=== PATIENT | male | born 1935 | race Caucasian/White ===

== ENCOUNTER 2018-09-12 00:21 | Inpatient (IN) ==
[2018-09-12] MEDS ORDERED: Heparin 10,000 UNITS/10 ML Vial (for IV use) IV.PUSH STA (00:27)
[2018-09-12] MEDS ORDERED: Morphine Inj 4 MG/ML Vial IV.PUSH ONE (00:30)
[2018-09-12] MEDS ORDERED: Sod Chloride 0.9% Inj 1,000 ML IV.SIG SCH (00:30)
--- NOTE | 2018-09-12 00:38 | ED ---
HPI General Chief Complaint: STEMI Alert Stated Complaint: cardiac complaint Time Seen by Provider: 09/12/18 00:27 Source: patient and EMS Mode of arrival: EMS Limitations: no limitations History of Present Illness HPI narrative: 82-year-old male came to the emergency room brought by EMS as a STEMI alert. Patient says that his pain started all of a sudden at 11 PM. There was slight shortness of breath associated. Patient described the pain 10 out of 10 on his entire chest. No significant radiation of the pain. No aggravating or relieving factors identified. When EMS arrived his blood pressure was more than 200. He was given 2 sublingual nitroglycerin and 325 aspirin with no relief for the pain. Patient says that he has no history of coronary artery disease. He is not a smoker and no history of diabetes. He had a stress test done 1 year ago in this institution which was negative as per him. The twelve-lead EKG with posterior leads showed STEMI in the posterior leads. Related Data Home Medications Medication Instructions Recorded Confirmed ezetimibe 10 mg PO DAILY 09/12/18 09/12/18 losartan-hydrochlorothiazide 1 tab PO DAILY 09/12/18 09/12/18 metoprolol tartrate 100 mg PO BID 09/12/18 09/12/18 Allergies Allergy/AdvReac Type Severity Reaction Status Date / Time No Known Allergies Allergy Blister Uncoded 09/12/18 00:54 Review of Systems ROS: all other systems reviewed are negative PMFSH History History Provided By: Patient and Removable Prosthodontist / EMT Medical History Medical History Hyperlipidemia (Acute) Hypertension (Acute) Surgical History Surgical History H/O shoulder surgery (Acute) History of CEA (carotid endarterectomy) (Acute) Hx of tonsillectomy (Acute) Previous back surgery (Acute) S/p bilateral carpal tunnel release (Acute) Family History Family History Other CAD (coronary artery disease) Colitis Social History Social History Substance History: No History of Abuse Second Hand Smoke Exposure: No Smoking Status: Never smoker How Often Do You Have a Drink Containing Alcohol: 4 or more times a week Recent Travel in [facility] within the Last 8 Weeks: No Recent Out of Country Travel within the Last 8 Weeks: No Exam Narrative Exam Narrative: GENERAL:, Alert, anxious, moderate distress SKIN: Focused skin assessment warm/dry. HEAD: Atraumatic. Normocephalic. EYES: Pupils equal and round. No scleral icterus. No injection or drainage. ENT: No nasal bleeding or discharge. Mucous membranes pink and moist. NECK: Trachea midline. No JVD. CARDIOVASCULAR: Regular rate and rhythm. No murmur appreciated. RESPIRATORY: No accessory muscle use. Fine bibasilar crackles GASTROINTESTINAL: Abdomen soft, non-tender, nondistended. Hepatic and splenic margins not palpable. MUSCULOSKELETAL: No obvious deformities. No clubbing. No cyanosis. No edema. NEUROLOGICAL: Awake and alert. No obvious cranial nerve deficits. Motor grossly within normal limits. Normal speech. PSYCHIATRIC: Appropriate mood and affect; insight and judgment normal. Course Initial Documented Vital Signs Temperature 98.4 F 09/12/18 00:24 Pulse Rate 122 H 09/12/18 00:24 Respiratory Rate 25 H 09/12/18 00:24 Blood Pressure 207/135 H 09/12/18 00:24 Pulse Oximetry 94 L 09/12/18 00:24 Last Documented Vital Signs Temperature 98.6 F 09/14/18 00:00 Pulse Rate 84 09/14/18 01:00 Respiratory Rate 18 09/14/18 00:00 Blood Pressure 105/66 09/14/18 00:00 Pulse Oximetry 98 09/14/18 00:00 Critical Care Time Critical Care Time: Yes Total Critical Care Time: 30 Attestation: Aggregate critical care time was 30 minutes. Time to perform other separately billable procedures was not included in the critical care time. My time did not include minutes spent treating any other patients simultaneously or on activities that did not directly contribute to the patient's treatment. The services I provided to this patient were to treat and/or prevent clinically significant deterioration that could result in: Posterior STEMI, nitroglycerin drip, hypertensive emergency I provided critical care services requiring my management, as noted below: Chart data review, documentation time, medication orders and management, vital sign assessments/reviewing monitor data, ordering and reviewing lab tests, ordering and interpreting/reviewing x-rays and diagnostic studies, care of the patient and discussion of the patient with the admitting physicians. Quality Measure Queries AMI ECG initial impression date: 09/12/18 ECG initial impression time: 00:36 Medical Decision Making MDM Narrative Medical decision making narrative: 12:36 AM a STEMI alert was called. Based on the twelve-lead confirmation for STEMI the [employer] field staff manager was called. He is on his way to the [facility]. I have informed the patient about his condition and the plan. Patient is getting 5000 units of heparin bolus and morphine for pain. His blood pressure is significantly elevated and a nitro drip has been started. Awaiting for the patient to go to the [facility]. Medical Screen Exam Complete: Yes Emergency Medical Condition: Yes Lab Data Result diagrams: 09/13/18 06:07 09/13/18 06:07 Lab Results 09/12/18 09/12/18 09/12/18 Range/Units 00:31 00:31 00:31 WBC 8.7 (4.0-11.0) th/mm3 RBC 4.97 (4.50-5.90) mil/mm3 Hgb 16.4 (13.0-17.0) gm/dL POC Hgb (Calc) (13.0-17.0) g/dL Hct 47.5 (39.0-51.0) % POC Hct (39-51.0) % MCV 95.6 (80.0-100.0) fL MCH 33.0 (27.0-34.0) pg MCHC 34.5 (32.0-36.0) % RDW 13.3 (11.6-17.2) % Plt Count 221 (150-450) th/mm3 MPV 9.0 (7.0-11.0) fL Neut % (Auto) 55.7 (16.0-70.0) % Lymph % (Auto) 30.3 (9.0-44.0) % [place] % (Auto) 10.4 H (0.0-8.0) % Eos % (Auto) 2.8 (0.0-4.0) % Baso % (Auto) 0.8 (0.0-2.0) % Neut # (Auto) 4.8 (1.8-7.7) th/mm3 Lymph # (Auto) 2.6 (1.0-4.8) th/mm3 [place] # (Auto) 0.9 (0.0-0.9) th/mm3 Eos # (Auto) 0.2 (0.0-0.4) th/mm3 Baso # (Auto) 0.1 (0.0-0.2) th/mm3 WBC Differential . Differential Comment Auto diff final PT 9.6 L (9.8-11.6) sec INR 0.9 Ratio APTT 33.0 H (23.4-31.7) sec POC Sodium (137-144) mmol/L Sodium (136-145) meq/L POC Potassium (3.6-5.0) mmol/L Potassium (3.5-5.1) meq/L POC Chloride (102-111) mmol/L Chloride (98-107) meq/L Carbon Dioxide (21.0-32.0) meq/L Anion Gap (5-15) meq/L POC BUN (5-21) mg/dL BUN (7-18) mg/dL Creatinine (0.60-1.30) mg/dL POC Creatinine (0.6-1.3) mg/dL Estimated GFR (>89) mL/min POC Glucose (68-110) mg/dL Random Glucose (74-106) mg/dL Hemoglobin A1c (4.3-6.0) % Calcium (8.5-10.1) mg/dL Magnesium (1.5-2.5) mg/dL Total Creatine Kinase (39-308) U/L CK-MB (CK-2) (0.5-3.6) ng/mL CK-MB (CK-2) % (0.0-4.0) % Troponin I (0.02-0.05) ng/mL B-Natriuretic Peptide 146 H (0-100) pg/mL Triglycerides (42-150) mg/dL Cholesterol (120-200) mg/dL LDL Cholesterol, Calc (0-99) mg/dL HDL Cholesterol (40.0-60.0) mg/dL Cholesterol/HDL Ratio Ratio 09/12/18 09/12/18 09/12/18 Range/Units 00:35 00:35 12:13 WBC (4.0-11.0) th/mm3 RBC (4.50-5.90) mil/mm3 Hgb (13.0-17.0) gm/dL POC Hgb (Calc) 16.3 (13.0-17.0) g/dL Hct (39.0-51.0) % POC Hct 48.0 (39-51.0) % MCV (80.0-100.0) fL MCH (27.0-34.0) pg MCHC (32.0-36.0) % RDW (11.6-17.2) % Plt Count (150-450) th/mm3 MPV (7.0-11.0) fL Neut % (Auto) (16.0-70.0) % Lymph % (Auto) (9.0-44.0) % [place] % (Auto) (0.0-8.0) % Eos % (Auto) (0.0-4.0) % Baso % (Auto) (0.0-2.0) % Neut # (Auto) (1.8-7.7) th/mm3 Lymph # (Auto) (1.0-4.8) th/mm3 [place] # (Auto) (0.0-0.9) th/mm3 Eos # (Auto) (0.0-0.4) th/mm3 Baso # (Auto) (0.0-0.2) th/mm3 WBC Differential Differential Comment PT (9.8-11.6) sec INR Ratio APTT (23.4-31.7) sec POC Sodium 134 L (137-144) mmol/L Sodium 132 L (136-145) meq/L POC Potassium 3.6 (3.6-5.0) mmol/L Potassium 4.9 (3.5-5.1) meq/L POC Chloride 96 L (102-111) mmol/L Chloride 100 (98-107) meq/L Carbon Dioxide 25.9 (21.0-32.0) meq/L Anion Gap 6 (5-15) meq/L POC BUN 19 (5-21) mg/dL BUN 15 (7-18) mg/dL Creatinine 1.14 (0.60-1.30) mg/dL POC Creatinine 1.2 (0.6-1.3) mg/dL Estimated GFR 62 L (>89) mL/min POC Glucose 184 H (68-110) mg/dL Random Glucose 133 H (74-106) mg/dL Hemoglobin A1c (4.3-6.0) % Calcium 9.1 8.5 (8.5-10.1) mg/dL Magnesium 2.1 (1.5-2.5) mg/dL Total Creatine Kinase 94 1194 H (39-308) U/L CK-MB (CK-2) 170.7 H (0.5-3.6) ng/mL CK-MB (CK-2) % 14.3 H* (0.0-4.0) % Troponin I 0.06 H (0.02-0.05) ng/mL B-Natriuretic Peptide (0-100) pg/mL Triglycerides 176 H (42-150) mg/dL Cholesterol 202 H (120-200) mg/dL LDL Cholesterol, Calc 117 H (0-99) mg/dL HDL Cholesterol 50.1 (40.0-60.0) mg/dL Cholesterol/HDL Ratio 4.03 Ratio 09/12/18 09/12/18 09/13/18 Range/Units 12:13 12:13 06:07 WBC 12.4 H 9.1 (4.0-11.0) th/mm3 RBC 4.27 L 3.95 L (4.50-5.90) mil/mm3 Hgb 14.6 13.1 (13.0-17.0) gm/dL POC Hgb (Calc) (13.0-17.0) g/dL Hct 41.0 37.6 L (39.0-51.0) % POC Hct (39-51.0) % MCV 96.0 95.0 (80.0-100.0) fL MCH 34.3 H 33.1 (27.0-34.0) pg MCHC 35.7 34.9 (32.0-36.0) % RDW 13.3 13.1 (11.6-17.2) % Plt Count 188 165 (150-450) th/mm3 MPV 7.8 8.3 (7.0-11.0) fL Neut % (Auto) 81.5 H (16.0-70.0) % Lymph % (Auto) 8.2 L (9.0-44.0) % [place] % (Auto) 9.7 H (0.0-8.0) % Eos % (Auto) 0.3 (0.0-4.0) % Baso % (Auto) 0.3 (0.0-2.0) % Neut # (Auto) 10.1 H (1.8-7.7) th/mm3 Lymph # (Auto) 1.0 (1.0-4.8) th/mm3 [place] # (Auto) 1.2 H (0.0-0.9) th/mm3 Eos # (Auto) 0.0 (0.0-0.4) th/mm3 Baso # (Auto) 0.0 (0.0-0.2) th/mm3 WBC Differential . Differential Comment Auto diff final PT (9.8-11.6) sec INR Ratio APTT (23.4-31.7) sec POC Sodium (137-144) mmol/L Sodium (136-145) meq/L POC Potassium (3.6-5.0) mmol/L Potassium (3.5-5.1) meq/L POC Chloride (102-111) mmol/L Chloride (98-107) meq/L Carbon Dioxide (21.0-32.0) meq/L Anion Gap (5-15) meq/L POC BUN (5-21) mg/dL BUN (7-18) mg/dL Creatinine (0.60-1.30) mg/dL POC Creatinine (0.6-1.3) mg/dL Estimated GFR (>89) mL/min POC Glucose (68-110) mg/dL Random Glucose (74-106) mg/dL Hemoglobin A1c 5.9 (4.3-6.0) % Calcium (8.5-10.1) mg/dL Magnesium (1.5-2.5) mg/dL Total Creatine Kinase (39-308) U/L CK-MB (CK-2) (0.5-3.6) ng/mL CK-MB (CK-2) % (0.0-4.0) % Troponin I (0.02-0.05) ng/mL B-Natriuretic Peptide (0-100) pg/mL Triglycerides (42-150) mg/dL Cholesterol (120-200) mg/dL LDL Cholesterol, Calc (0-99) mg/dL HDL Cholesterol (40.0-60.0) mg/dL Cholesterol/HDL Ratio Ratio 09/13/18 Range/Units 06:07 WBC (4.0-11.0) th/mm3 RBC (4.50-5.90) mil/mm3 Hgb (13.0-17.0) gm/dL POC Hgb (Calc) (13.0-17.0) g/dL Hct (39.0-51.0) % POC Hct (39-51.0) % MCV (80.0-100.0) fL MCH (27.0-34.0) pg MCHC (32.0-36.0) % RDW (11.6-17.2) % Plt Count (150-450) th/mm3 MPV (7.0-11.0) fL Neut % (Auto) (16.0-70.0) % Lymph % (Auto) (9.0-44.0) % [place] % (Auto) (0.0-8.0) % Eos % (Auto) (0.0-4.0) % Baso % (Auto) (0.0-2.0) % Neut # (Auto) (1.8-7.7) th/mm3 Lymph # (Auto) (1.0-4.8) th/mm3 [place] # (Auto) (0.0-0.9) th/mm3 Eos # (Auto) (0.0-0.4) th/mm3 Baso # (Auto) (0.0-0.2) th/mm3 WBC Differential Differential Comment PT (9.8-11.6) sec INR Ratio APTT (23.4-31.7) sec POC Sodium (137-144) mmol/L Sodium 135 L (136-145) meq/L POC Potassium (3.6-5.0) mmol/L Potassium 4.0 D (3.5-5.1) meq/L POC Chloride (102-111) mmol/L Chloride 101 (98-107) meq/L Carbon Dioxide 24.1 (21.0-32.0) meq/L Anion Gap 10 (5-15) meq/L POC BUN (5-21) mg/dL BUN 12 (7-18) mg/dL Creatinine 1.26 (0.60-1.30) mg/dL POC Creatinine (0.6-1.3) mg/dL Estimated GFR 55 L (>89) mL/min POC Glucose (68-110) mg/dL Random Glucose 127 H (74-106) mg/dL Hemoglobin A1c (4.3-6.0) % Calcium 8.4 L (8.5-10.1) mg/dL Magnesium 1.8 (1.5-2.5) mg/dL Total Creatine Kinase (39-308) U/L CK-MB (CK-2) (0.5-3.6) ng/mL CK-MB (CK-2) % (0.0-4.0) % Troponin I (0.02-0.05) ng/mL B-Natriuretic Peptide (0-100) pg/mL Triglycerides (42-150) mg/dL Cholesterol (120-200) mg/dL LDL Cholesterol, Calc (0-99) mg/dL HDL Cholesterol (40.0-60.0) mg/dL Cholesterol/HDL Ratio Ratio Imaging Data Radiologist's impression: Chest X-Ray 09/12/18 00:27 CONCLUSION: Negative examination. Mild interstitial lung disease. Discharge Plan Discharge Disposition Patient Disposition: 30 Still Patient Physicians Team ED Provider: Guanakito Marcelo Primary Care Provider: UNKNOWN, Attending Provider: Lobo Balbuena Other Providers: Honorio Drew Status ED Status: Left Department Discharge Information Discharge Date/Time: 09/12/18 01:52
[2018-09-12] MEDS: Nitroglycerin Drip Premix 50 MG/250 ML BOTTLE IV.CONT PRN ×2 (00:43→14:07)
--- NOTE | 2018-09-12 00:55 | XR ---
EXAM DATE: 09/12/2018 12:47 AM EST AGE/SEX: 82 years / Male INDICATIONS: Stemi Alert. CLINICAL DATA: This is the patient's initial encounter. Patient reports that signs and symptoms have been present for 1 day and indicates a pain score of 8/10. MEDICAL/SURGICAL HISTORY: Aneurysm, abdominal. Hypertension. Tonsillectomy. Carotid endartere ctomy. COMPARISON: No prior exams available for comparison. FINDINGS: A single AP view of the chest demonstrates the lungs to be symmetrically aerated without evidence of mass, infiltrate or effusion. The cardiomediastinal contours are unremarkable. Osseous structures a re intact. Fibrous osseous anchor within the right shoulder. CONCLUSION: Negative examination. Mild interstitial lung disease. Electronically signed by: Dmitriy Boone MD 09/12/2018 12:54 AM EST
[2018-09-12 00:58] LABS: Baso # (Auto) 0.1 th/mm3 (0.0-0.2); Baso % (Auto) 0.8 % (0.0-2.0); Eos # (Auto) 0.2 th/mm3 (0.0-0.4); Eos % (Auto) 2.8 % (0.0-4.0); Hematocrit 47.5 % (39.0-51.0); Hemoglobin 16.4 gm/dL (13.0-17.0); Lymph # (Auto) 2.6 th/mm3 (1.0-4.8); Lymph % (Auto) 30.3 % (9.0-44.0); Mean Corpuscular HGB Conc 34.5 % (32.0-36.0); Mean Corpuscular Volume 95.6 fL (80.0-100.0); Mono # (Auto) 0.9 th/mm3 (0.0-0.9); Mono % (Auto) 10.4 % (0.0-8.0); Neut # (Auto) 4.8 th/mm3 (1.8-7.7); Neut % (Auto) 55.7 % (16.0-70.0); Platelet Count 221 th/mm3 (150-450); Red Blood Count 4.97 mil/mm3 (4.50-5.90); Red Cell Distribution Width 13.3 % (11.6-17.2); White Blood Count 8.7 th/mm3 (4.0-11.0)
[2018-09-12] MEDS ORDERED: fentaNYL Citrate Inj 100 MCG/2 ML Ampul ONE (01:04)
[2018-09-12] MEDS ORDERED: Heparin 10,000 UNITS/10 ML Vial (for IV use) ONE (01:04)
[2018-09-12] MEDS ORDERED: Heparin/NS PF Inj 1,000 ML ONE (01:04)
[2018-09-12] MEDS ORDERED: Tirofiban Inj 12,500 MCG/250 ML PLAST..BAG ONE (01:05)
[2018-09-12 01:06] LABS: INR 0.9 Ratio; Prothrombin Time 9.6 sec (9.8-11.6)
[2018-09-12] MEDS ORDERED: Lidocaine PF 1% Inj 30 ML Vial ONE (01:07)
[2018-09-12 01:08] LABS: Calcium 9.1 mg/dL (8.5-10.1); Magnesium 2.1 mg/dL (1.5-2.5)
[2018-09-12 01:10] LABS: Troponin I 0.06 ng/mL (0.02-0.05)
[2018-09-12] MEDS ORDERED: Iohexol 350 MG/ML 100 ML Vial (for Cath Lab) IVCONTRAST ONE (01:21)
[2018-09-12] MEDS ORDERED: Sodium Chlor 0.9% Inj 250 ML IV.SIG ONE (02:14)
[2018-09-12] MEDS ORDERED: Temazepam 15 MG Capsule PO PRN (02:14)
[2018-09-12] MEDS ORDERED: Atropine Inj 1 MG/ML Vial IV.PUSH PRN (02:14)
[2018-09-12] MEDS ORDERED: Morphine Inj 4 MG/ML Vial IV.PUSH PRN (02:14)
[2018-09-12] MEDS ORDERED: Lidocaine 2% Jelly 5 ML Syringe TOPICAL PRN (02:14)
[2018-09-12] MEDS ORDERED: Lidocaine 1% Inj 50 ML Vial INFILTRATN PRN (02:14)
--- NOTE | 2018-09-12 02:21 | CATHPROC ---
Tele[employer]ip HIS Report Study Information Study Number Admission Scheduled Start Study Start [id number] Sep 12 2018 12:33AM 09/12/2018 Sep 12 2018 1:05AM [place] [facility] Cardiac Catheterization Admit Source Facility Department Emergency department [facility] - Forging Engineer Physician and Clinical Staff Initial Honorio Gray Senior Integration Architect Wendi Richards,KAYLIN Senior Integration Architect Betsy Sam Recorder Phylicia Ayala,RT(R) (BS) Scrub Teresa Grewal,TIN RECOVERY WORKER TECH2 Procedures Performed Procedure Location (Site) Vessel Name Coronary Angiograms LCA Left Coronary Coronary Angiograms RCA Right Coronary Drug Eluting Inflatio CIRC Mid CIRC Drug Eluting Inflatio RCA Dist Right Coronary Drug Eluting Inflatio RCA Prox Right Coronary L Heart Cath LV Gram-hand inj. LV LV Ventricle PTCA CIRC Mid CIRC PTCA RCA Dist Right Coronary PTCA RCA Prox Right Coronary PTCA ADD ON'S Wire insertion Fem Art (right) Femoral Art Equipment Time Maintenance Mechanic Telephone Description Size Mfg Part Number Used/Scraped [id number] 01:34 [employer] WIRE, ASAStunn PROWATER 180CM 180CM Used *[id number] TRANSDUCER, TRUWAVE [id number] 01:16 LUNA DENNY * Used W/STOCKCOCK *[id number] *[id number] *[id number] [id number] *[id number] [id number] *[id number] *[id number] 01:16 Caterna BLANKET,WARM AIR CCL * Used *[id number] 01:16 [employer]aterna PACK, CCL CUSTOM * Used *[id number] 01:16 [employer] PACER PEN, SKIN DUAL W/ RULER * Used *[id number] 01:49 [employer]TRONIC BALLOON, 2.0 X 15MM EUPHORA 15MM Used *[id number] 01:38 [employer]TR[employer]IC BALLOON, 2.5 X 15MM EUPHORA 15MM Used *[id number] 01:55 [employer]IC STENT, 2.25 15MM VENRA 2.25 15MM [id number] Used [id number] 01:57 [employer] STENT, 2.75 26MM VERNA 2.75 26MM Used *[id number] 01:41 [employer]IC STENT, 3.0 18MM VERNA 3.0 18MM Used *[id number] 01:34 [employer] MEDICAL 30 KWAN INDEFLATOR Used *[id number] 01:16 [employer] MEDICAL SHEATH, FR6.5 PRELUDE 11CM FR 6.5 038ACT Used *[id number] 01:16 [employer] MEDICAL WIRE, 3MMJ .035 180CM 180CM Used *[id number] 02:14 [employer] MEDICAL WIRE, 3MMJ .035 180CM 180CM Used *[id number] 01:16 NAMIC MANIFOLD, 4 PORT * Used *[id number] 01:16 [employer] OMNIPAQUE, 350 MG, 150ML 150ML [id number] Used Equipment Model, Serial, Lot Number and Expiration Data Description Model Number Serial Number Lot Number Expiration Date STENT, 2.25 15MM VERNA [id number] 12-31-2019 STENT, 2.75 26MM VERNA [id number] 11-14-2019 STENT, 3.0 18MM VERNA [id number] 03-06-2020 History: Current Medications Medication Dosage/Unit Route Frequency Last Date/Time Taken NTG SL HEPARIN ASA History: Allergies Allergy Reaction No Known Allergies Blister History: Risk Factors Family History of Hypertension Dyslipidemia Previous GA Previous Heart Failure Premature CAD Yes Yes No No No Prior Valve Prior PCI Prior CABG Surgery No No No Cerebrovascular Peripheral Artery Chronic Lung On Dialysis Diabetes Disease Disease Disease No No No No No History: Symptoms/Diagnosis Selection Items Chest pain History: Stress Tests Stress or Imaging Studies Performed No History: Other Current Smoker No Labs Hgb (g/dl) Hct (%) RBC (MIL/MM3) WBC (l/cumm) Platelets (thousands) 11.60-17.00 35.00-51.00 4.00-5.90 4.00-11.00 150.00-450.00 16.4 47.5 4.9 8.7 221 Glucose (mg/dl) BUN (mg/dl) Creatinine (mg/dl) BUN:Creatinine (1:x) 74.00-106.00 7.00-18.00 0.50-1.30 10.00-20.00 184 19 1.2 15.8 INR (PTT:PT) 0.90-1.10 0.9 Troponin I (ng/ml) CPK-MB (ng/ML) 0.02-0.05 0.50-3.60 0.06 Not Drawn Medication Medication Total Dose (Bolus/Oral) Medication Total Dosage/Unit 1% XYLOCAINE 20 mL AGGRASTAT BOLUS 45 mL BRILINTA 180 mg HEPARIN 2500 units NTG (IC) 200 mcg VASOTEC 1.25 mg Medications (Bolus/Oral) Medication Time Given Dosage/Unit Administered By Reason 1% XYLOCAINE 09/12/2018 1:26:56 AM 20 mL Honorio Drew 20 mL 1% XYLOCAINE given in lab by Honorio Drew in Right Groin via Subcutaneous. AGGRASTAT BOLUS 09/12/2018 1:37:49 AM 45 mL Wendi Richards 45 mL AGGRASTAT BOLUS given in lab by Wendi Richards, KAYLIN via Peripheral IV. HEPARIN 09/12/2018 1:39:33 AM 2500 units Betsy Sam 2500 units HEPARIN given in lab by Betsy Sam via Peripheral IV. NTG (IC) 09/12/2018 1:41:46 AM 200 mcg Teresa Grewal 200 mcg NTG (IC) given in lab by Teresa Grewal, TIN RECOVERY WORKER TECH2 via Intra-coronary. VASOTEC 09/12/2018 1:53:11 AM 1.25 mg Wendi Richards 1.25 mg VASOTEC given in lab by Wendi Richards, KAYLIN via Peripheral IV. BRILINTA 09/12/2018 2:05:21 AM 180 mg Betsy Sam 180 mg BRILINTA given in lab by Betsy Sam via Oral. Medication (Drip) Medication Time Given Dosage/Unit Concentration/Unit Diluent (ml) Solution AGGRASTAT DRIP 09/12/2018 1:40:49 AM 0.15 mcg/kg/min 12.5 mg 250 NaCl .9 0.15 mcg/kg/min AGGRASTAT DRIP given in lab by Wendi Richards, KAYLIN via Peripheral IV. Pump/Drip Flow = 16.3 ml/hr using NaCl .9 with a concentration of 12.5 mg in 250 ml. IV Solutions 09/12/2018 1:26:17 AM 0 mL (IV) 1000 NaCl .9 Patient arrived on IV Solutions via Peripheral IV. Pump/Drip Flow = 30 ml/hr using NaCl .9. NITROGLYCERIN DRIP 09/12/2018 1:21:48 AM 45 mcg/min 50 mg 250 D5W Patient arrived on 45 mcg/min NITROGLYCERIN DRIP in Right Antecubital via Peripheral IV. Pump/Drip Fl ow = 13.5 ml/hr using D5W with a concentration of 50 mg in 250 ml. Initial Case Assessment Cardiovascular HR Rhythm NIBP Chest Pain 83 reg 230/129 7 Edema Present Skin color Skin None Normal Warm Dry Circulatory - Right Pulses Dorsalis Pedis Femoral 2 3 Scale (0,1,2,3,4,d) Circulatory - Left Pulses Dorsalis Pedis Femoral 2 3 Scale (0,1,2,3,4,d) Circulatory - Lower Extremities Color Lower Right Color Lower Left Normal Normal Neurological State Oriented to time-place- Alert Moves all extremities person Respiration - General Respiration Rate (B/min) 15 Chronological Log Time Study Chronological Log 1:00:07 Emergency Room notified that Forging Engineer is ready. 1:19:16 Patient arrived via Bed. Vitals capture started with the following parameters, Patient=Adult, Interval=5 min, Initial Pr llaxtx=091 mmHg, 1:21:03 Deflation Rate=5 mmHg, Cuff placed on Left Arm 1:21:14 Patient Name, D.O.B, / Armband Verified By R.N. 1:21:16 Consent signed by the physician and the patient and verified by the Forging Engineer staff. 1:21:35 Presedation assessment performed by Forging Engineer RN. 1:21:41 Patient Warmer Placed on the Table. 1:21:42 Dominic Prominences Protected 1:21:45 A # 18 IV was noted in the Antecubital (right). Grade = 0 Patient arrived on 45 mcg/min NITROGLYCERIN DRIP in Right Antecubital via Peripheral IV. Pump/D rip Flow = 13.5 1:21:48 ml/hr using D5W with a concentration of 50 mg in 250 ml. 1:21:50 History and physical on the chart or being dictated. Assessment: Initial Case, HR=83 BPM, Rhythm=reg, IQNP=425/129 mmhg, Chest Pain=7, Edema=None, Color=Normal, Skin = Warm, Dry Right Pulses: Christiano Ped=2, Femoral=3 Left Pulses: Christiano Ped=2, Femoral=3 1:21:51 Lower Right Extremities: Color=Normal Lower Left Extremities: Color=Normal Neurological: State=Alert, Ox3, SEE Respiration: Resp=15 B/min 1:21:53 A # 20 IV was noted in the Antecubital (left). Grade = 0 1:21:53 Bilateral groins prepped with 2% chlorhexidine, and draped after a 3 minute waiting time. 1:22:54 HR=89 bpm, XJRZ=415/129 mmhg, SpO2=90.0 %, Resp=18 B/min, Pain=7, Xochilt=10, Berman=2 1:26:17 Patient arrived on IV Solutions via Peripheral IV. Pump/Drip Flow = 30 ml/hr using NaCl .9. Time Out. Correct patient, correct procedure, correct physician, labs, allergies, and equipment verified with label cutter 1:26:33 team present. Fire risk assesment completed (see hard stop sheet for coding). Time Out Concu rred by MD and individual staff in procedure. 1:26:49 Case Start 1:26:55 HR=82 bpm, OLGA=409/121 mmhg, SpO2=91.0 %, Resp=15 B/min, Pain=7, Xochilt=10, Berman=2 1:26:56 20 mL 1% XYLOCAINE given in lab by Honorio Drew in Right Groin via Subcutaneous. 1:27:13 Reference ECG taken 1:27:47 Pressure channel 1 zeroed. 1:27:52 Access site was Right Femoral Artery. 1:27:58 A SHEATH, FR6.5 PRELUDE 11CM FR 6.5 was advanced into the Fem Art (right) using the Percutan eous technique. A JL 4.0 INFINITI CATHETER FR 6 was advanced over a wire. OMNIPAQUE, 350 MG, 150ML 150ML was use d for 1:28:05 injections. 1:29:44 The LCA was injected and visualized at various angles. OMNIPAQUE, 350 MG, 150ML 150ML used. Recorded Pressure: Ao, HR=79, Condition=Condition 1 1:30:03 (Aorta) Ao 188/94/138 1:30:33 Catheter was removed A 3DRC INFINITI CATHETER FR 6 was advanced over a wire. OMNIPAQUE, 350 MG, 150ML 150ML was used for 1:30:35 injections. 1:31:54 HR=81 bpm, CGBN=546/115 mmhg, SpO2=95.0 %, Resp=14 B/min, Pain=7, Xochilt=10, Berman=2 1:32:01 The RCA was injected and visualized at various angles. OMNIPAQUE, 350 MG, 150ML 150ML used. 1:33:44 Catheter was removed 1:33:56 OMNIPAQUE, 350 MG, 150ML 150ML and 30 KWAN INDEFLATOR added. A XB 3.5 GUIDE CATHETER FR 6 was advanced over a wire. OMNIPAQUE, 350 MG, 150ML 150ML was used f or 1:34:21 injections. 1:35:08 Activated Clotting Time Drawn 1:36:02 A WIRE, ASAHI PROWATER 180CM 180CM was inserted via Fem Art (right). 1:36:55 HR=85 bpm, RDEW=738/117 mmhg, SpO2=95.0 %, Resp=11 B/min, Pain=7, Xochilt=10, Berman=2 1:36:58 Interventional wire has crossed the lesion 1:37:49 45 mL AGGRASTAT BOLUS given in lab by Wendi Richards, KAYLIN via Peripheral IV. 1:38:14 ACT (Normal Range 90-180) = 200 A BALLOON, 2.5 X 15MM EUPHORA 15MM was inserted over WIRE, ASAHI PROWATER 180CM 180CM via the Fe m Art 1:38:25 (right). A BALLOON, 2.5 X 15MM EUPHORA 15MM over a WIRE, ASAHI PROWATER 180CM 180CM in the CIRC Mid was i nflated 1:38:33 using a 30 KWAN INDEFLATOR at 13 kwan for 20 sec. 1:39:27 Balloon Removed. 1:39:33 2500 units HEPARIN given in lab by Betsy Sam via Peripheral IV. A STENT, 3.0 18MM VERNA 3.0 18MM was advanced through a XB 3.5 GUIDE CATHETER FR 6 over a WIRE, A JAS 1:40:46 PROWATER 180CM 180CM. 0.15 mcg/kg/min AGGRASTAT DRIP given in lab by Wendi Richards, RN via Peripheral IV. Pump/Drip Flow = 16.3 1:40:49 ml/hr using NaCl .9 with a concentration of 12.5 mg in 250 ml. 1:41:46 200 mcg NTG (IC) given in lab by Teresa Grewal RRT TECH2 via Intra-coronary. 1:41:56 HR=84 bpm, ECCU=984/119 mmhg, SpO2=94.0 %, Resp=12 B/min, Pain=7, Xochilt=10, Bermna=2 A STENT, 3.0 18MM VERNA 3.0 18MM was deployed using a 30 KWAN INDEFLATOR at 13 atmospheres for 30 seconds in 1:42:45 the CIRC Mid. 1:43:42 Delivery device removed 1:44:33 Wire removed 1:44:38 Catheter was removed A SH GUIDE CATHETER FR 6 was advanced over a wire. OMNIPAQUE, 350 MG, 150ML 150ML was used fo r 1:44:40 injections. 1:46:53 HR=86 bpm, ZKFJ=256/127 mmhg, SpO2=93.0 %, Resp=17 B/min, Pain=7, Xochilt=10, Berman=2 1:47:57 A WIRE, ASAHI PROWATER 180CM 180CM was inserted via Fem Art (right). A BALLOON, 2.0 X 15MM EUPHORA 15MM was inserted over WIRE, ASAHI PROWATER 180CM 180CM via the Fe m Art 1:49:25 (right). A BALLOON, 2.0 X 15MM EUPHORA 15MM over a WIRE, ASAHI PROWATER 180CM 180CM in the RCA Dist was i nflated 1:50:51 using a 30 KWAN INDEFLATOR at 8 kwan for 20 sec. 1:51:43 ACT (Normal Range 90-180) = 295 1:51:53 Balloon Removed A BALLOON, 2.5 X 15MM EUPHORA 15MM was inserted over WIRE, ASAHI PROWATER 180CM 180CM via the Fe m Art 1:52:27 (right). 1:52:44 HR=90 bpm, FTRT=889/141 mmhg, SpO2=93.0 %, Resp=19 B/min, Pain=7, Xochilt=10, Berman=2 A BALLOON, 2.5 X 15MM EUPHORA 15MM over a WIRE, ASAHI PROWATER 180CM 180CM in the RCA Prox was i nflated 1:53:09 using a 30 KWAN INDEFLATOR at 13 kwan for 22 sec. 1:53:11 1.25 mg VASOTEC given in lab by Wendi Richards RN via Peripheral IV. A BALLOON, 2.5 X 15MM EUPHORA 15MM over a WIRE, ASAHI PROWATER 180CM 180CM in the RCA Prox was i nflated 1:53:39 using a 30 KWAN INDEFLATOR at 13 kwan for 20 sec. 1:54:35 Balloon Removed A STENT, 2.25 15MM VERNA 2.25 15MM was advanced through a HS SH GUIDE CATHETER FR 6 over a WIRE, ASAHI 1:55:26 PROWATER 180CM 180CM. A STENT, 2.25 15MM VERNA 2.25 15MM was deployed using a 30 KWAN INDEFLATOR at 13 atmospheres for 3 0 seconds 1:56:16 in the RCA Dist. 1:56:58 HR=86 bpm, VWQY=263/121 mmhg, SpO2=95.0 %, Resp=12 B/min, Pain=5, Xochilt=10, Berman=2 A STENT, 2.75 26MM VERNA 2.75 26MM was advanced through a HS SH GUIDE CATHETER FR 6 over a WIRE, ASAKS 1:58:35 PROWATER 180CM 180CM. A STENT, 2.75 26MM VERNA 2.75 26MM was deployed using a 30 KWAN INDEFLATOR at 16 atmospheres for 3 0 seconds 1:58:48 in the RCA Prox. 2:00:02 Delivery device removed 2:00:23 Wire removed 2:00:26 Catheter was removed A MPA-2 INFINITI CATHETER FR 6 was advanced over a wire. OMNIPAQUE, 350 MG, 150ML 150ML was used for 2:00:29 injections. Recorded Pressure: LV, HR=95, Condition=Condition 1 2:01:51 (Left Ventricle) LV 198/18/30 2:01:53 HR=85 bpm, WROV=289/116 mmhg, SpO2=97.0 %, Resp=13 B/min, Pain=5, Xochilt=10, Berman=2 2:02:08 The LV was manually injected with 8 cc's and visualized. OMNIPAQUE, 350 MG, 150ML 150ML used . Recorded Pressure: LV, Ao, HR=93, Condition=Condition 1 2:02:11 (Left Ventricle) LV 191/27/30, (Aorta) Ao 203/100/150 2:02:34 Catheter was removed 2:02:41 Case End (Physician broke scrub) 2:05:21 180 mg BRILINTA given in lab by Betsy Sam via Oral. 2:05:34 In the Fem Art (right) the SHEATH, FR6.5 PRELUDE 11CM FR 6.[address] by Teresa Grewal, TIN RECOVERY WORKER TECH2. 2:06:54 HR=85 bpm, EJPI=291/118 mmhg, SpO2=96.0 %, Resp=13 B/min, Pain=5, Xochilt=10, Berman=2 2:11:26 Catheter(s) removed without difficulty 2:11:47 Sterile dressing applied to site 2:11:49 No case complications noted. 2:11:52 Bedside Report will be given. 2:11:53 Implantable Device card placed in patient's chart. 2:12:01 A Left Heart Cath was performed. 2:12:30 HR=85 bpm, OCTF=010/121 mmhg, SpO2=96.0 %, Resp=17 B/min, Pain=5, Xochilt=10, Berman=2 2:12:39 [facility]IC called. Advised a-line needed 2:16:18 Vitals capture stopped. 2:17:25 [facility] Study - Contrast Media Used In Study Contrast Total Opened (mL) Total Used (mL) Total Wasted (mL) Omnipaque 155 155 0 End Study - Maximum Contrast Load Max Contrast Load (mL) 377.8 End Study - Radiation Exposure Fluoro Time (minutes) 7.3 End Study - Patient Disposition Complications Transferred To Interventional Outcome No Telemetry Bed successful
[2018-09-12] MEDS ORDERED: Tirofiban Inj 12,500 MCG/250 ML PLAST..BAG IV.CONT SCH (03:00)
[2018-09-12] MEDS: Carvedilol 12.5 MG Tablet PO SCH ×3 (04:13→20:59)
[2018-09-12] MEDS: Sod Chloride 0.9% Inj 1,000 ML IV.CONT SCH ×2 (04:14→11:16)
--- NOTE | 2018-09-12 04:31 | MB ---
cc: Honorio Drew MD DATE: 09/12/2018 REASON FOR CONSULTATION: ST-elevation myocardial infarction. HISTORY OF PRESENT ILLNESS: The patient is an 82-year-old white male with a history of hypertension, hyperlipidemia, carotid disease, who was in his usual state of health up until 11 p.m. last night when he began to experience substernal chest pressure without associated shortness of breath, nausea or diaphoresis. He came to the emergency department about 90 minutes later where EKG suggested acute inferior ST-elevation myocardial infarction. He continues to have moderate substernal chest discomfort. He denies syncope, near syncope, palpitations, paroxysmal nocturnal dyspnea, pedal edema. At times, he feels mild lightheadedness with standing. PAST MEDICAL HISTORY: 1. Hypertension. 2. Hyperlipidemia. 3. Carotid disease, status post left carotid endarterectomy in 2013. PAST SURGICAL HISTORY: 1. Left carotid endarterectomy in 2013. 2. Rotator cuff surgery. 3. Tonsillectomy. 4. Three hernia repairs. CARDIAC MEDICATIONS AT HOME: Currently unknown. ALLERGIES: NO KNOWN DRUG ALLERGIES. FAMILY HISTORY: Noncontributory. SOCIAL HISTORY: There is no history of alcohol or tobacco abuse. REVIEW OF SYSTEMS: As in the history of present illness, otherwise negative or noncontributory. He also denies headache, abdominal pain, melena, dyspepsia, bright red blood per rectum. PHYSICAL EXAMINATION: VITAL SIGNS: His blood pressure is 210/105 with a pulse of 77, respirations are 13. GENERAL: He is a well-developed, well-nourished white male, in no acute distress. NECK: Jugular venous pressure is normal. Carotid pulses are 2+ bilaterally and without definite bruit. CHEST: Reveals clear lungs clemons. CARDIAC: He has a regular rhythm and rate without S3, S4, or murmur. ABDOMEN: He has a soft, nontender abdomen. Bowel sounds are present. There is no definite hepatosplenomegaly. EXTREMITIES: Reveals no clubbing, cyanosis or edema. Peripheral pulses are normal throughout. LABORATORY DATA: Includes normal CBC. Potassium 3.6, BUN 19, creatinine 1.2. Troponin 0.06, CK 94. EKG from 09/12/2018 at 12:24 a.m. shows sinus rhythm, inferior and lateral ST elevation with reciprocal changes consistent with acute ST elevation myocardial infarction, right bundle branch block. IMPRESSION: Acute inferior and lateral ST-elevation myocardial infarction in this 82-year-old white male with a history of hypertension, hyperlipidemia, carotid disease. At this time, he continues to have ongoing chest pains associated with ST elevation on the monitor. Therefore, he has been recommended emergency cardiac catheterization with probable percutaneous coronary intervention. At this time, there is no definite evidence for congestive heart failure or significant arrhythmias. RECOMMENDATIONS: 1. Emergency cardiac catheterization. 2. Initiate beta jenny and LASHELL inhibitor therapy. 3. Check a fasting lipid profile and initiate statin therapy. Honorio Drew MD [facility] , 01:22 AM , 01:27 AM MTDD
[2018-09-12] MEDS ORDERED: Atropine Inj 1 MG/10 ML Syringe ONE (05:06)
--- NOTE | 2018-09-12 05:58 | MA ---
cc: Honorio Drew MD DATE: 09/12/2018 PROCEDURES: Left heart catheterization, selective coronary angiography, left ventriculography, angioplasty and stent of the mid left circumflex, angioplasty and stent of the proximal and distal right coronary. PROCEDURE NOTES: The patient was brought to the cardiac catheterization laboratory under emergency conditions in the midst of an acute inferior and lateral ST-elevation myocardial infarction. The right groin was prepped and draped as per policy and anesthetized with 1% lidocaine. Arterial access was obtained via the right femoral artery and a 6-Mexican sheath placed. Coronary arteriography was performed using 6-Mexican Yoly left 4.0 and right progressive catheters. Left ventriculography was done using a multipurpose catheter. Percutaneous coronary intervention was done as described below. There were no apparent immediate complications. HEMODYNAMIC DATA: Left ventricle 191 with an end diastolic pressure of 25-30. Aorta 203/100 with a mean of 150. There was no significant transvalvular aortic gradient on pullback of the pigtail catheter. CORONARY ARTERIOGRAPHY: The left main is a large caliber vessel with minimal luminal irregularities. The left anterior descending is a relatively small caliber vessel, which is diffusely diseased. There is somewhat eccentric 60%-70% proximal stenosis and also eccentric 70% mid stenosis. There is diffuse disease of the distal LAD resulting in up to 25% stenosis. The LAD gives rise to 3 tiny diagonals the first of which has 80-90% ostial stenosis. The left circumflex is a relatively large vessel giving rise to a medium sized branching obtuse marginal. In the mid left circumflex, there is slightly ulcerated 95% stenosis. One branch of the obtuse marginal has 40% stenosis proximally and the other branch 30% stenosis proximally. The right coronary artery is a medium-sized, diffusely diseased dominant vessel. There is diffuse probably up to 70% proximal stenosis and 85% stenosis distally. LEFT VENTRICULOGRAPHY: Contrast injection of the left ventricle reveals global hypokinesis. Ejection fraction is estimated at 30%. PERCUTANEOUS CORONARY INTERVENTION DESCRIPTION: Aggrastat was given as per protocol. Adequate heparin was given during the procedure to achieve an ACT greater than 250 seconds. Using a 6-Mexican XB 3.5 guiding catheter, the ostium of the left main was reengaged. Using a 0.014 Prowater guidewire, the left circumflex disease was crossed without difficulty and the tip of the wire positioned distally. Predilation was done using a 2.5 mm Euphora balloon catheter. Stenting was done using a 3.0 x 18 mm Resolute Markesan stent, which was deployed at approximately 13 atmospheres for 30 seconds. Final angiography shows reduction of the initial stenosis to roughly 0% residual with no definite evidence for dissection or distal embolization. The guiding catheter was exchanged for a 6-Mexican hockey stick guiding catheter with side holes. Using the same Prowater guidewire, the proximal and distal RCA disease was crossed without difficulty and the tip of the wire positioned very distally. Predilation of the distal stenosis was done using a 2.0 mm Euphora balloon catheter. Predilation of the diffuse proximal disease was done using the same 2.5 mm Euphora balloon catheter. Stenting of the distal disease was done using a 2.25 x 15 mm Resolute Daniel, which was deployed at 13 atmospheres for 30 seconds. Stenting of the proximal disease was done using a 2.75 x 26 mm Resolute Markesan stent, which was deployed at approximately 15-16 atmospheres for 30 seconds. Final angiography shows overall good results with reduction of the diffuse proximal disease and the distal stenosis to roughly 0% residual with no definite evidence for dissection or distal embolization. The patient tolerated the procedure well. There were no apparent immediate complications. CONCLUSIONS: 1. Severe 3-vessel coronary artery disease. 2. Right dominant system. 3. Status post angioplasty and stent of the mid left circumflex, which is probably the infarct-related vessel. 4. Status post angioplasty and stent of the proximal and distal right coronary. 5. Reduced left ventricular systolic function with ejection fraction estimated at 30% due to global hypokinesis. DISCUSSION: Stenting of the proximal an mid LAD disease will be done at a later date. MD BENITO Ortiz/roland , 02:14 AM , 02:23 AM SEVERINO
[2018-09-12] MEDS: amLODIPine 10 MG Tablet PO SCH (09:31)
--- NOTE | 2018-09-12 10:32 | P.HPIM ---
History of Present Illness Primary Care Physician: UNKNOWN Chief Complaint: Chest pain History of Present Illness: The patient is an 82-year-old male with a past medical history of hypertension and hyperlipidemia who is presenting to the hospital with chest and shoulder pain. The patient said that last night he had crab legs for dinner and drinks 2 david and water's. He then went to sleep and woke up around 11 PM with right -sided shoulder pain as well as central chest pain. He said the pain continued and he could not get comfortable. He went to rest in a recliner and that did not help. He took four Tums because he thought it might be secondary to indigestion and that did not help. He did not have any associated shortness of breath. He did feel sweaty at the time. He rated the overall pain as an 8 out of 10 in severity. He waited for 1/2-hour and since he did not get better he called for an ambulance. He arrived in the hospital as a STEMI alert and is status post catheterization. He complains of residual 6 out of 10 central chest pain. He denies any shortness of breath at this time. He feels like he needs to fart. He said his last bowel movement was yesterday. Inpatient Certification: I certify that the inpatient services were ordered in accordance with Medicare regulations governing the order. This includes certification that hospital inpatient services are reasonable and necessary and in the case of services not specified as inpatient-only under 42 CFR 419.22(n), that they are appropriately provided as inpatient services in accordance to with the 2-midnight benchmark under 43 CFR 412.3(e) Review of Systems All other systems reviewed negative except as stated in HPI PMFSH - History History Provided By: Patient - Medical History Medical History: Medical History (Last Updated 09/12/18 @ 10:27 by Lobo Balbuena DO) Hyperlipidemia Hypertension - Surgical History Surgical History: Surgical History (Last Updated 09/12/18 @ 10:27 by Lobo Balbuena DO) H/O shoulder surgery History of CEA (carotid endarterectomy) Hx of tonsillectomy Previous back surgery S/p bilateral carpal tunnel release - Family History Family History: Family History (Last Updated 09/12/18 @ 10:27 by Lobo Balbuena DO) Other CAD (coronary artery disease) Colitis - Social History I have reviewed the patient's Social History: Yes - Tobacco History Second Hand Smoke Exposure: No Tobacco Use In Past 30 Days: No Smoking Status: Never smoker - Alcohol History How Often Do You Have a Drink Containing Alcohol: 4 or more times a week - Substance Use History Substance History: No History of Abuse - Travel History Recent Travel in the [place] Within the Last 8 Weeks: No Recent Travel Out of the Country Within the Last 8 Weeks: No - Immunization History Tetanus Immunization: >5 Years Medications and Allergies Active Medications: Active Medications Amlodipine Besylate (Norvasc) 10 mg PO DAILY [facility] Last Admin: 09/12/18 09:31 Dose: 10 mg Aspirin (Aspirin Chew) 81 mg PO DAILY [facility] Last Admin: 09/12/18 08:58 Dose: 81 mg Atropine Sulfate (Atropine Inj) 0.5 mg IV.PUSH UNSCH PRN PRN Reason: VAGAL REPONSE Carvedilol (Coreg) 12.5 mg PO BID [facility] Last Admin: 09/12/18 08:58 Dose: 12.5 mg Clonidine HCl (Catapres) 0.1 mg PO Q6H PRN PRN Reason: SYS BP GREATER THAN 160 MMHG Enalapril Maleate (Vasotec) 10 mg PO BID [facility] Last Admin: 09/12/18 08:58 Dose: 10 mg Sodium Chloride (Ns Inj) 1,000 mls @ 30 mls/hr IV.SIG .Q24H [facility] Stop: 09/13/18 00:29 Last Admin: 09/12/18 00:42 Dose: 30 mls/hr Nitroglycerin/Dextrose (Nitroglycerin Drip Premix) 50 mg in 250 mls @ 0 mls/hr IV.CONT TITRATE PRN; Protocol PRN Reason: Per Protocol Last Titration: 09/12/18 05:00 Dose: 60 mcg/min, 18 mls/hr Sodium Chloride (Ns Inj) 1,000 mls @ 100 mls/hr IV.CONT .Q10H [facility] Stop: 09/12/18 14:14 Last Admin: 09/12/18 04:14 Dose: 100 mls/hr Tirofiban/Sodium Chloride (Aggrastat Inj) 12,500 mcg in 250 mls @ 0 mls/hr IV.CONT .Q0M [facility]; Protocol Lidocaine HCl (Xylocaine 1% Inj (50 Ml)) 10 ml INFILTRATN UNSCH PRN PRN Reason: SHEATH REMOVAL Stop: 09/13/18 02:13 Lidocaine HCl (Xylocaine 2% Jelly) 5 ml TOPICAL PRN PRN PRN Reason: For male guzman catheter insert Lorazepam (Ativan Inj) 0.5 mg IV.PUSH UNSCH PRN PRN Reason: ANXIETY Stop: 09/13/18 02:13 Morphine Sulfate (Morphine Inj) 2 mg IV.PUSH Q30M PRN PRN Reason: BREAKTHROUGH PAIN Last Admin: 09/12/18 06:24 Dose: 2 mg Sodium Chloride (Ns Flush) 2 ml IV.FLUSH BID [facility] Last Admin: 09/12/18 09:02 Dose: 2 ml Sodium Chloride (Ns Flush) 2 ml IV.FLUSH PRN PRN PRN Reason: FLUSH AFTER USING IV ACCESS Temazepam (Restoril) 15 mg PO HS PRN PRN Reason: SLEEP Ticagrelor (Brilinta) 90 mg PO BID [facility] Last Admin: 09/12/18 09:01 Dose: 90 mg Allergies Allergy/AdvReac Type Severity Reaction Status Date / Time No Known Allergies Allergy Blister Uncoded 09/12/18 00:54 Home Medications Medication Instructions Recorded Confirmed Type ezetimibe 10 mg PO DAILY 09/12/18 09/12/18 History losartan-hydrochlorothiazide 1 tab PO DAILY 09/12/18 09/12/18 History metoprolol tartrate 100 mg PO BID 09/12/18 09/12/18 History Exam Vital signs: Vital Signs 09/12/18 00:24 09/12/18 00:25 09/12/18 00:55 Temperature 98.4 F Pulse Rate 122 H Respiratory Rate 25 H Blood Pressure 207/135 H Pulse Oximetry 94 L 98 95 09/12/18 00:58 09/12/18 01:01 09/12/18 01:25 Temperature Pulse Rate 77 77 Respiratory Rate 13 16 Blood Pressure 210/105 H Pulse Oximetry 95 09/12/18 01:51 09/12/18 03:00 09/12/18 04:00 Temperature 97.4 F L Pulse Rate 83 81 78 Respiratory Rate 20 18 Blood Pressure 215/117 H 183/113 H Pulse Oximetry 94 L 92 L 09/12/18 05:00 09/12/18 06:00 09/12/18 07:00 Temperature Pulse Rate 79 80 74 Respiratory Rate Blood Pressure Pulse Oximetry 09/12/18 08:00 Temperature Pulse Rate Respiratory Rate Blood Pressure Pulse Oximetry 92 L Intake & Output 09/11/18 09/12/18 09/12/18 18:59 06:59 18:59 Intake Total 370 / 370 Output Total 800 / 800 Balance -430 / -430 Weight 91 kg Intake: IV 250 / 250 NS Inj 250 ML @ 500 mls/hr IV. 250 / 250 SIG ONCE ONE Rx#:[id number] Oral 120 / 120 Output: Urine 800 / 800 Narrative: General: NAD. HEENT: NC, AT. Cardiac: RRR. No murmur appreciated. Lungs: CTAB. GI: Soft, nontender, nondistended. Extremities: No edema. Cath site on right groin without hematoma. Neuro: No gross deficits. Results - Labs CBC & Chem 7: 09/12/18 00:31 Labs: Short CBC 09/12/18 Range/Units 00:31 WBC 8.7 (4.0-11.0) th/mm3 Hgb 16.4 (13.0-17.0) gm/dL Hct 47.5 (39.0-51.0) % Plt Count 221 (150-450) th/mm3 BMP 09/12/18 00:35 Calcium 9.1 Cardiac Enzymes 09/12/18 Range/Units 00:35 Total Creatine Kinase 94 (39-308) U/L Troponin I 0.06 H (0.02-0.05) ng/mL - Imaging Impressions Chest X-Ray 09/12/18 00:27 CONCLUSION: Negative examination. Mild interstitial lung disease. Caprini VTE Risk Assessment Caprini VTE Risk Assessment: Moderate/High Risk (score >= 2) Caprini Risk Assessment Model: Point Value = 1 Point Value = 2 Point Value = 3 Point Value = 5 Age 41-60 Minor surgery BMI > 25 kg/m2 Swollen legs Varicose veins or History of unexplained or recurrent spontaneous Oral contraceptives or hormone replacement Sepsis (< 1 month) Serious lung disease, including pneumonia (< 1 month) Abnormal pulmonary function Acute myocardial infarction Congestive heart failure (< 1 month) History of inflammatory bowel disease Medical patient at bed rest Age 61-74 Arthroscopic surgery Major open surgery (> 45 min) Laparoscopic surgery (> 45 min) Malignancy Confined to bed (> 72 hours) Immobilizing plaster cast Central venous access Age >= 75 History of VTE Family history of VTE Factor V Leiden Prothrombin [id number] Lupus anticoagulant Anticardiolipin antibodies Elevated serum homocysteine Heparin-induced thrombocytopenia Other congenital or acquired thrombophilia Stroke (< 1 month) Elective arthroplasty Hip, pelvis, or leg fracture Acute spinal cord injury (< 1 month) Prophylaxis Regimen: Total Risk Factor Score Risk Level Prophylaxis Regimen 0-1 Low Early ambulation 2 Moderate Order ONE of the following: *Sequential Compression Device (SCD) *Heparin 5000 units SQ BID 3-4 Higher Order ONE of the following medications: *Heparin 5000 units SQ TID *Enoxaparin/Lovenox 40 mg SQ daily (WT < 150 kg, CrCl > 30 mL/min) *Enoxaparin/Lovenox 30 mg SQ daily (WT < 150 kg, CrCl > 10-29 mL/min) *Enoxaparin/Lovenox 30 mg SQ BID (WT < 150 kg, CrCl > 30 mL/min) AND/OR *Sequential Compression Device (SCD) 5 or more Highest Order ONE of the following medications: *Heparin 5000 units SQ TID (Preferred with Epidurals) *Enoxaparin/Lovenox 40 mg SQ daily (WT < 150 kg, CrCl > 30 mL/min) *Enoxaparin/Lovenox 30 mg SQ daily (WT < 150 kg, CrCl > 10-29 mL/min) *Enoxaparin/Lovenox 30 mg SQ BID (WT < 150 kg, CrCl > 30 mL/min) AND *Sequential Compression Device (SCD) Assessment and Plan - Plan STEMI The pt was brought in as a STEMI alert. EKG with lateral ST elevations and reciprocal changes. S/p cath: Severe 3-vessel coronary artery disease; Status post angioplasty and stent of the mid left circumflex, which is probably the infarct-related vessel; Status post angioplasty and stent of the proximal and distal right coronary; Reduced left ventricular systolic function with ejection fraction estimated at 30% due to global hypokinesis. -telemetry. -continue cardiac regimen per cardiology. -pain control, oxygen as needed. HTN Improved. -continue enalapril, Coreg and amlodipine. -clonidine as needed. HLP On Zetia as an outpt. -check lipid profile. Hyperglycemia Likely a stress reaction. -check an A1c. PPx: Heparin H&P: Quality - VTE Deep Vein Thrombosis/Pulmonary Embolism Present on Admission: No
--- NOTE | 2018-09-12 11:00 | P.PNADD ---
Addendum to Inpatient Note Reason for Addendum: Additional Documentation Additional information: Doing well s/p inferior/lateral STEMI, stent x 2 RCA, stent left circumflex early this morning. Groin stable. No definite residual angina. Complains now of right upper check/right shoulder soreness. No CHF. BP's better, still suboptimal. REC continue to optimize BP control, stent x 2 of residual proximal and mid LAD disease on Friday.
[2018-09-12 12:22] LABS: Baso % (Auto) 0.3 % (0.0-2.0); Eos % (Auto) 0.3 % (0.0-4.0); Hemoglobin 14.6 gm/dL (13.0-17.0); Lymph % (Auto) 8.2 % (9.0-44.0); Mean Corpuscular HGB Conc 35.7 % (32.0-36.0); Mean Corpuscular Hemoglobin 34.3 pg (27.0-34.0); Mean Platelet Volume 7.8 fL (7.0-11.0); Mono # (Auto) 1.2 th/mm3 (0.0-0.9); Mono % (Auto) 9.7 % (0.0-8.0); Neut # (Auto) 10.1 th/mm3 (1.8-7.7); Neut % (Auto) 81.5 % (16.0-70.0); Platelet Count 188 th/mm3 (150-450); Red Blood Count 4.27 mil/mm3 (4.50-5.90); Red Cell Distribution Width 13.3 % (11.6-17.2); White Blood Count 12.4 th/mm3 (4.0-11.0)
[2018-09-12 12:53] LABS: Calcium 8.5 mg/dL (8.5-10.1); Carbon Dioxide 25.9 meq/L (21.0-32.0); Potassium 4.9 meq/L (3.5-5.1)
[2018-09-12 12:59] LABS: Hemoglobin A1c 5.9 % (4.3-6.0)
[2018-09-12 13:08] LABS: Chol/HDL Ratio 4.03 Ratio; HDL Cholesterol 50.1 mg/dL (40.0-60.0)
[2018-09-12 13:35] LABS: Creatine Kinase MB 170.7 ng/mL (0.5-3.6)
[2018-09-12 14:00] LABS: CKMB Percent 14.3 % (0.0-4.0)
--- NOTE | 2018-09-12 14:47 | ECG ---
Date Performed: 09/12/2018 Time Performed: 00:30:33 PTAGE: 82 years EKG: Sinus rhythm WITH FREQUENT VENTRICULAR PREMATURE COMPLEXES RIGHT BUNDLE BRANCH BLOCK ABNORMAL ECG PREVIOUS TRACING :10/07/2018 Compared to previous tracing, PVC's are new. Otherwise no signifi cant serial change DOCTOR: Michael Greenfield Interpretating Date/Time 09/12/2018 14:46:55
[2018-09-12] MEDS: Acetaminophen 325 MG Tablet PO PRN (21:57)
[2018-09-13] MEDS: Acetaminophen 325 MG Tablet PO PRN (04:50)
[2018-09-13 06:22] LABS: Hematocrit 37.6 % (39.0-51.0); Hemoglobin 13.1 gm/dL (13.0-17.0); Mean Corpuscular HGB Conc 34.9 % (32.0-36.0); Mean Corpuscular Hemoglobin 33.1 pg (27.0-34.0); Mean Platelet Volume 8.3 fL (7.0-11.0); Platelet Count 165 th/mm3 (150-450); Red Blood Count 3.95 mil/mm3 (4.50-5.90); Red Cell Distribution Width 13.1 % (11.6-17.2); White Blood Count 9.1 th/mm3 (4.0-11.0)
[2018-09-13 07:03] LABS: Calcium 8.4 mg/dL (8.5-10.1); Carbon Dioxide 24.1 meq/L (21.0-32.0); Magnesium 1.8 mg/dL (1.5-2.5)
[2018-09-13] MEDS: Carvedilol 12.5 MG Tablet PO SCH ×2 (09:51→21:21)
[2018-09-13] MEDS: amLODIPine 10 MG Tablet PO SCH (09:51)
--- NOTE | 2018-09-13 11:43 | P.PNCA ---
Subjective Interval history: Feels well. Denies angina, dyspnea, dizziness, palpitations, PND Medications and Allergies Active Medications: Active Medications Acetaminophen (Tylenol) 650 mg PO Q4H PRN PRN Reason: temp>100.4/JAMISON Last Admin: 09/13/18 04:50 Dose: 650 mg Amlodipine Besylate (Norvasc) 10 mg PO DAILY [facility] Last Admin: 09/13/18 09:51 Dose: 10 mg Aspirin (Aspirin Chew) 81 mg PO DAILY [facility] Last Admin: 09/13/18 09:51 Dose: 81 mg Atropine Sulfate (Atropine Inj) 0.5 mg IV.PUSH UNSCH PRN PRN Reason: VAGAL REPONSE Calcium Carbonate (Tums Chew) 500 mg CHEW Q2H PRN PRN Reason: abdominal discomfort Last Admin: 09/12/18 15:02 Dose: 500 mg Carvedilol (Coreg) 12.5 mg PO BID [facility] Last Admin: 09/13/18 09:51 Dose: 12.5 mg Clonidine HCl (Catapres) 0.1 mg PO Q6H PRN PRN Reason: SYS BP GREATER THAN 160 MMHG Enalapril Maleate (Vasotec) 10 mg PO BID [facility] Last Admin: 09/13/18 09:51 Dose: 10 mg Nitroglycerin/Dextrose (Nitroglycerin Drip Premix) 50 mg in 250 mls @ 0 mls/hr IV.CONT TITRATE PRN; Protocol PRN Reason: Per Protocol Last Titration: 09/12/18 16:00 Dose: 20 mcg/min, 6 mls/hr Tirofiban/Sodium Chloride (Aggrastat Inj) 12,500 mcg in 250 mls @ 0 mls/hr IV.CONT .Q0M [facility]; Protocol Lidocaine HCl (Xylocaine 2% Jelly) 5 ml TOPICAL PRN PRN PRN Reason: For male guzman catheter insert Morphine Sulfate (Morphine Inj) 2 mg IV.PUSH Q30M PRN PRN Reason: BREAKTHROUGH PAIN Last Admin: 09/12/18 06:24 Dose: 2 mg Pantoprazole Sodium (Protonix) 40 mg PO DAILY [facility] Last Admin: 09/13/18 09:51 Dose: 40 mg Sodium Chloride (Ns Flush) 2 ml IV.FLUSH BID [facility] Last Admin: 09/13/18 09:51 Dose: 2 ml Sodium Chloride (Ns Flush) 2 ml IV.FLUSH PRN PRN PRN Reason: FLUSH AFTER USING IV ACCESS Temazepam (Restoril) 15 mg PO HS PRN PRN Reason: SLEEP Ticagrelor (Brilinta) 90 mg PO BID [facility] Last Admin: 09/13/18 09:51 Dose: 90 mg Allergies Allergy/AdvReac Type Severity Reaction Status Date / Time No Known Allergies Allergy Blister Uncoded 09/12/18 00:54 Home Medications Medication Instructions Recorded Confirmed Type ezetimibe 10 mg PO DAILY 09/12/18 09/12/18 History losartan-hydrochlorothiazide 1 tab PO DAILY 09/12/18 09/12/18 History metoprolol tartrate 100 mg PO BID 09/12/18 09/12/18 History Physical Exam Vital signs: Vital Signs 09/12/18 12:00 09/12/18 12:47 09/12/18 14:00 Temperature 98.5 F Pulse Rate 89 92 H 81 Respiratory Rate 16 Blood Pressure 154/86 H Pulse Oximetry 96 09/12/18 15:00 09/12/18 16:00 09/12/18 16:39 Temperature 98.4 F Pulse Rate 72 75 61 Respiratory Rate 16 Blood Pressure 129/72 Pulse Oximetry 95 09/12/18 17:54 09/12/18 19:00 09/12/18 20:00 Temperature 98.1 F Pulse Rate 64 92 H 96 H Respiratory Rate 18 Blood Pressure 135/80 Pulse Oximetry 96 09/12/18 21:00 09/12/18 22:00 09/12/18 23:00 Temperature Pulse Rate 90 88 86 Respiratory Rate Blood Pressure Pulse Oximetry 09/13/18 00:00 09/13/18 01:00 09/13/18 02:00 Temperature 97.6 F Pulse Rate 92 H 78 78 Respiratory Rate 18 Blood Pressure 130/70 Pulse Oximetry 96 09/13/18 03:00 09/13/18 04:00 09/13/18 05:00 Temperature 98.0 F Pulse Rate 76 84 76 Respiratory Rate 18 Blood Pressure 118/66 Pulse Oximetry 97 09/13/18 06:00 09/13/18 07:00 09/13/18 08:00 Temperature 98.4 F Pulse Rate 83 76 86 Respiratory Rate 16 Blood Pressure 140/66 Pulse Oximetry 98 09/13/18 08:14 Temperature Pulse Rate Respiratory Rate Blood Pressure Pulse Oximetry 96 Intake & Output 09/12/18 09/13/18 09/13/18 18:59 06:59 18:59 Intake Total 2120 / 2120 2560 / 2560 Output Total 800 / 800 1225 / 1225 Balance 1320 / 1320 1335 / 1335 Weight 89.1 kg Intake: IV 1500 / 1500 2000 / 1999 Nitroglycerin Drip Premix 50 mg 250 / 250 In 250 ml @ Per Protocol IV. CONT TITRATE PRN Rx#:[id number] NS Inj 1,000 ML @ 100 mls/hr IV 1000 / 1000 1000 / 1000 .CONT .Q10H [facility] Rx#:[id number] NS Inj 1,000 ML @ 30 mls/hr IV. 1000 / 1000 SIG .Q24H [facility] Rx#:[id number] Oral 620 / 620 560 / 560 Output: Urine 800 / 800 1225 / 1225 Other: Date of Last Bowel Movement 09/13/18 - Constitutional no acute distress - Routine Neck Exam Absent: JVD - Routine Respiratory Exam Present: CTA bilaterally - Routine Cardiovascular Exam Present: RRR, S1, S2. Absent: murmur, gallop - Routine Abdominal Exam Present: normoactive bowel sounds. Absent: tenderness, organomegaly - Routine Extremities Exam Absent: cyanosis, clubbing, edema Results 09/13/18 06:07 09/13/18 06:07 Cardiac Enzymes 09/12/18 09/12/18 09/12/18 Range/Units 00:31 00:35 12:13 CK-MB (CK-2) 170.7 H (0.5-3.6) ng/mL Troponin I 0.06 H (0.02-0.05) ng/mL B-Natriuretic Peptide 146 H (0-100) pg/mL Coagulation 09/12/18 09/12/18 Range/Units 00:31 00:31 PT 9.6 L (9.8-11.6) sec APTT 33.0 H (23.4-31.7) sec B-Natriuretic Peptide 146 H (0-100) pg/mL Lipids 09/12/18 Range/Units 12:13 Triglycerides 176 H (42-150) mg/dL Cholesterol 202 H (120-200) mg/dL HDL Cholesterol 50.1 (40.0-60.0) mg/dL Cholesterol/HDL Ratio 4.03 Ratio CBC 09/12/18 09/12/18 09/13/18 Range/Units 00:31 12:13 06:07 WBC 8.7 12.4 H 9.1 (4.0-11.0) th/mm3 RBC 4.97 4.27 L 3.95 L (4.50-5.90) mil/mm3 Hgb 16.4 14.6 13.1 (13.0-17.0) gm/dL Hct 47.5 41.0 37.6 L (39.0-51.0) % Plt Count 221 188 165 (150-450) th/mm3 Neut # (Auto) 4.8 10.1 H (1.8-7.7) th/mm3 Lymph # (Auto) 2.6 1.0 (1.0-4.8) th/mm3 [place] # (Auto) 0.9 1.2 H (0.0-0.9) th/mm3 Eos # (Auto) 0.2 0.0 (0.0-0.4) th/mm3 Baso # (Auto) 0.1 0.0 (0.0-0.2) th/mm3 Comprehensive Metabolic Panel 09/12/18 09/12/18 09/13/18 Range/Units 00:35 12:13 06:07 Sodium 132 L 135 L (136-145) meq/L Potassium 4.9 4.0 D (3.5-5.1) meq/L Chloride 100 101 (98-107) meq/L Carbon Dioxide 25.9 24.1 (21.0-32.0) meq/L BUN 15 12 (7-18) mg/dL Creatinine 1.14 1.26 (0.60-1.30) mg/dL Calcium 9.1 8.5 8.4 L (8.5-10.1) mg/dL Intake and Output 09/12/18 09/13/18 09/13/18 22:59 06:59 14:59 Intake Total 1870 / 1870 1560 / 1560 Output Total 800 / 800 1225 / 1225 Balance 1070 / 1070 335 / 335 Intake: IV 1250 / 1250 1000 / 1000 NS Inj 1,000 ML @ 100 mls/hr IV 1000 / 1000 .CONT .Q10H [facility] Rx#:[id number] NS Inj 1,000 ML @ 30 mls/hr IV. 1000 / 1000 SIG .Q24H [facility] Rx#:[id number] Oral 620 / 620 560 / 560 Output: Urine 800 / 800 1225 / 1225 Other: Date of Last Bowel Movement 09/13/18 Weight 89.1 kg - Imaging and Cardiology Imaging: Impressions Chest X-Ray 09/12/18 00:27 CONCLUSION: Negative examination. Mild interstitial lung disease. Assessment and Plan - Assessment (1) ST elevation (STEMI) myocardial infarction Code(s): I21.3 - ST elevation (STEMI) myocardial infarction of unspecified site Status: Acute Plan: Doing well. No further angina. No definite CHF. Continues on Brilinta, aspirin, beta jenny, LASHELL-I. REC stent of proximal and mid LAD tomorrow am, hopefully discharge Tues am. (2) Ischemic cardiomyopathy Code(s): I25.5 - Ischemic cardiomyopathy Status: Chronic Plan: EF about 30% by cath, suspect will improve after revascularization. No acute CHF. Continue beta jenny, LASHELL-I, echo in 90 days to reassess LV function. (3) Hyperlipidemia Code(s): E78.5 - Hyperlipidemia, unspecified Status: Chronic Plan: Suboptimal lipid profile. Recommend initiate atorvastatin 40 mg qhs. (4) Hypertension Code(s): I10 - Essential (primary) hypertension Status: Chronic Plan: BP's much better, now mostly normotensive. Continue same. - Plan Code Status: full code Discussed Condition With: patient (1) ST elevation (STEMI) myocardial infarction Qualifiers: Involved coronary artery: left circumflex coronary artery Qualified Code(s): I21.21 - ST elevation (STEMI) myocardial infarction involving left circumflex coronary artery (3) Hyperlipidemia Qualifiers: Hyperlipidemia type: mixed hyperlipidemia Qualified Code(s): E78.2 - Mixed hyperlipidemia (4) Hypertension Qualifiers: Hypertension type: essential hypertension Qualified Code(s): I10 - Essential (primary) hypertension
[2018-09-13] MEDS ORDERED: fentaNYL Citrate Inj 100 MCG/2 ML Ampul IV.PUSH SCH (11:45)
--- NOTE | 2018-09-13 13:25 | P.PNIM ---
Subjective Interval history: The patient was sitting up in bed and eating lunch. His family was at the bedside. He had no acute complaints. He was anticipating his catheterization tomorrow. Physical Exam Vital signs: Vital Signs 09/12/18 14:00 09/12/18 15:00 09/12/18 16:00 Temperature 98.4 F Pulse Rate 81 72 75 Respiratory Rate 16 Blood Pressure 129/72 Pulse Oximetry 95 09/12/18 16:39 09/12/18 17:54 09/12/18 19:00 Temperature Pulse Rate 61 64 92 H Respiratory Rate Blood Pressure Pulse Oximetry 09/12/18 20:00 09/12/18 21:00 09/12/18 22:00 Temperature 98.1 F Pulse Rate 96 H 90 88 Respiratory Rate 18 Blood Pressure 135/80 Pulse Oximetry 96 09/12/18 23:00 09/13/18 00:00 09/13/18 01:00 Temperature 97.6 F Pulse Rate 86 92 H 78 Respiratory Rate 18 Blood Pressure 130/70 Pulse Oximetry 96 09/13/18 02:00 09/13/18 03:00 09/13/18 04:00 Temperature 98.0 F Pulse Rate 78 76 84 Respiratory Rate 18 Blood Pressure 118/66 Pulse Oximetry 97 09/13/18 05:00 09/13/18 06:00 09/13/18 07:00 Temperature Pulse Rate 76 83 76 Respiratory Rate Blood Pressure Pulse Oximetry 09/13/18 08:00 09/13/18 08:14 Temperature 98.4 F Pulse Rate 86 Respiratory Rate 16 Blood Pressure 140/66 Pulse Oximetry 98 96 Intake & Output 09/12/18 09/13/18 09/13/18 18:59 06:59 18:59 Intake Total 2120 / 2120 2560 / 2560 Output Total 800 / 800 1225 / 1225 Balance 1320 / 1320 1335 / 1335 Weight 89.1 kg Intake: IV 1500 / 1500 2000 / 2000 Nitroglycerin Drip Premix 50 mg 250 / 250 In 250 ml @ Per Protocol IV. CONT TITRATE PRN Rx#:[id number] NS Inj 1,000 ML @ 100 mls/hr IV 1000 / 1000 1000 / 1000 .CONT .Q10H [facility] Rx#:[id number] NS Inj 1,000 ML @ 30 mls/hr IV. 1000 / 1000 SIG .Q24H [facility] Rx#:[id number] Oral 620 / 620 560 / 560 Output: Urine 800 / 800 1225 / 1225 Other: Date of Last Bowel Movement 09/13/18 Narrative: General: NAD. HEENT: NC, AT. Cardiac: RRR. No murmur appreciated. Lungs: CTAB. GI: Soft, nontender, nondistended. Extremities: No edema. Cath site on right groin without hematoma. Neuro: No gross deficits. Results - Labs CBC & Chem 7: 09/13/18 06:07 09/13/18 06:07 Laboratory Results - last 24 hr 09/12/18 09/13/18 09/13/18 12:13 06:07 06:07 WBC 9.1 RBC 3.95 L Hgb 13.1 Hct 37.6 L MCV 95.0 MCH 33.1 MCHC 34.9 RDW 13.1 Plt Count 165 MPV 8.3 Sodium 135 L Potassium 4.0 D Chloride 101 Carbon Dioxide 24.1 Anion Gap 10 BUN 12 Creatinine 1.26 Estimated GFR 55 L Random Glucose 127 H Calcium 8.4 L Magnesium 1.8 CK-MB (CK-2) 170.7 H CK-MB (CK-2) % 14.3 H* Assessment and Plan - Plan STEMI The pt was brought in as a STEMI alert. EKG with lateral ST elevations and reciprocal changes. S/p cath: Severe 3-vessel coronary artery disease; Status post angioplasty and stent of the mid left circumflex, which is probably the infarct-related vessel; Status post angioplasty and stent of the proximal and distal right coronary; Reduced left ventricular systolic function with ejection fraction estimated at 30% due to global hypokinesis. -telemetry. -continue cardiac regimen. -pain control, oxygen as needed. -cardiology planning on repeat cath 09/14. HTN Improved. -continue enalapril, Coreg and amlodipine. -clonidine as needed. HLP On Zetia as an outpt. LDL is elevated. -atorvastatin started. Hyperglycemia Likely a stress reaction. A1c 5.9%. -monitor as needed. PPx: Heparin
--- NOTE | 2018-09-13 15:48 | ECG ---
Date Performed: 09/12/2018 Time Performed: 10:38:58 PTAGE: 82 years EKG: Sinus rhythm with frequent PVCs Rightward axis Right bundle branch block Abnormal ECG PREVIOUS TRACING ;09/12/2018 @00.30 Since the previous tracing, no significant change noted DOCTOR: Michael Greenfield Interpretating Date/Time 09/13/2018 15:47:11
[2018-09-14] MEDS: Sod Chloride 0.9% Inj 1,000 ML IV.CONT SCH ×2 (03:48→14:53)
[2018-09-14] MEDS: Nitroglycerin Drip Premix 50 MG/250 ML BOTTLE IV.CONT PRN (06:25)
[2018-09-14] MEDS: Carvedilol 12.5 MG Tablet PO SCH ×2 (08:11→21:03)
[2018-09-14] MEDS: amLODIPine 10 MG Tablet PO SCH (08:11)
[2018-09-14] MEDS ORDERED: Heparin/NS PF Inj 1,000 ML ONE (09:30)
[2018-09-14] MEDS ORDERED: fentaNYL Citrate Inj 100 MCG/2 ML Ampul ONE (09:31)
[2018-09-14] MEDS ORDERED: Heparin 10,000 UNITS/10 ML Vial (for IV use) ONE (09:31)
[2018-09-14] MEDS ORDERED: Misc Info for Pharmacy OTHER STA (10:14)
--- NOTE | 2018-09-14 10:19 | P.PNCA ---
Subjective Interval history: No CP, dyspnea, dizziness, palpitations. Medications and Allergies Active Medications: Active Medications Acetaminophen (Tylenol) 650 mg PO Q4H PRN PRN Reason: temp>100.4/JAMISON Last Admin: 09/13/18 04:50 Dose: 650 mg Amlodipine Besylate (Norvasc) 10 mg PO DAILY [facility] Last Admin: 09/14/18 08:11 Dose: 10 mg Aspirin (Aspirin Chew) 81 mg PO DAILY [facility] Last Admin: 09/14/18 08:12 Dose: 81 mg Atorvastatin Calcium (Lipitor) 40 mg PO HS [facility] Last Admin: 09/13/18 21:21 Dose: 40 mg Atropine Sulfate (Atropine Inj) 0.5 mg IV.PUSH UNSCH PRN PRN Reason: VAGAL REPONSE Calcium Carbonate (Tums Chew) 500 mg CHEW Q2H PRN PRN Reason: abdominal discomfort Last Admin: 09/12/18 15:02 Dose: 500 mg Carvedilol (Coreg) 12.5 mg PO BID [facility] Last Admin: 09/14/18 08:11 Dose: 12.5 mg Clonidine HCl (Catapres) 0.1 mg PO Q6H PRN PRN Reason: SYS BP GREATER THAN 160 MMHG Diphenhydramine HCl (Benadryl) 50 mg PO BUFF WHEEL FABRICATOR [facility] Stop: 09/17/18 11:44 Enalapril Maleate (Vasotec) 10 mg PO BID [facility] Last Admin: 09/14/18 08:12 Dose: 10 mg Fentanyl Citrate (Fentanyl Inj) 50 mcg IV.PUSH BUFF WHEEL FABRICATOR [facility] Stop: 09/17/18 11:44 Nitroglycerin/Dextrose (Nitroglycerin Drip Premix) 50 mg in 250 mls @ 0 mls/hr IV.CONT TITRATE PRN; Protocol PRN Reason: Per Protocol Last Admin: 09/14/18 06:25 Dose: 20 mcg/min, 6 mls/hr Tirofiban/Sodium Chloride (Aggrastat Inj) 12,500 mcg in 250 mls @ 0 mls/hr IV.CONT .Q0M [facility]; Protocol Sodium Chloride (Ns Inj) 1,000 mls @ 75 mls/hr IV.CONT .[id number] [facility] Last Admin: 09/14/18 03:48 Dose: 75 mls/hr Lidocaine HCl (Xylocaine 2% Jelly) 5 ml TOPICAL PRN PRN PRN Reason: For male guzman catheter insert Midazolam HCl (Versed Inj) 1 mg IV.PUSH BUFF WHEEL FABRICATOR [facility] Stop: 09/17/18 11:44 Morphine Sulfate (Morphine Inj) 2 mg IV.PUSH Q30M PRN PRN Reason: BREAKTHROUGH PAIN Last Admin: 09/12/18 06:24 Dose: 2 mg Pantoprazole Sodium (Protonix) 40 mg PO DAILY [facility] Last Admin: 09/14/18 08:12 Dose: 40 mg Sodium Chloride (Ns Flush) 2 ml IV.FLUSH BID [facility] Last Admin: 09/14/18 08:12 Dose: Not Given Sodium Chloride (Ns Flush) 2 ml IV.FLUSH PRN PRN PRN Reason: FLUSH AFTER USING IV ACCESS Temazepam (Restoril) 15 mg PO HS PRN PRN Reason: SLEEP Ticagrelor (Brilinta) 90 mg PO BID [facility] Last Admin: 09/14/18 08:12 Dose: 90 mg Allergies Allergy/AdvReac Type Severity Reaction Status Date / Time No Known Allergies Allergy Blister Uncoded 09/12/18 00:54 Home Medications Medication Instructions Recorded Confirmed Type ezetimibe 10 mg PO DAILY 09/12/18 09/12/18 History losartan-hydrochlorothiazide 1 tab PO DAILY 09/12/18 09/12/18 History metoprolol tartrate 100 mg PO BID 09/12/18 09/12/18 History Physical Exam Vital signs: Vital Signs 09/13/18 11:00 09/13/18 12:00 09/13/18 13:00 Temperature 98.1 F Pulse Rate 94 H 86 94 H Respiratory Rate 16 Blood Pressure 104/48 L Pulse Oximetry 99 09/13/18 14:00 09/13/18 15:00 09/13/18 16:00 Temperature 98.2 F Pulse Rate 92 H 100 H 98 H Respiratory Rate 16 Blood Pressure 142/75 H Pulse Oximetry 97 09/13/18 17:00 09/13/18 18:00 09/13/18 20:00 Temperature 99.1 F Pulse Rate 68 72 80 Respiratory Rate 18 Blood Pressure 142/77 H Pulse Oximetry 96 09/13/18 21:00 09/13/18 22:00 09/13/18 23:00 Temperature Pulse Rate 92 H 84 82 Respiratory Rate Blood Pressure Pulse Oximetry 09/14/18 00:00 09/14/18 01:00 09/14/18 02:00 Temperature 98.6 F Pulse Rate 87 84 84 Respiratory Rate 18 Blood Pressure 105/66 Pulse Oximetry 98 09/14/18 03:00 09/14/18 04:00 09/14/18 05:00 Temperature 98.6 F Pulse Rate 82 89 78 Respiratory Rate 18 Blood Pressure 127/76 Pulse Oximetry 97 09/14/18 06:00 09/14/18 07:00 09/14/18 08:00 Temperature 98.1 F Pulse Rate 86 92 H 81 Respiratory Rate 18 Blood Pressure 107/68 Pulse Oximetry 97 09/14/18 09:00 Temperature Pulse Rate 84 Respiratory Rate Blood Pressure Pulse Oximetry Intake & Output 09/13/18 09/14/18 09/14/18 18:59 06:59 18:59 Intake Total 1000 / 1000 490 / 490 Output Total 1300 / 1300 1550 / 1550 Balance -300 / -300 -1060 / -1060 Weight 85 kg Intake: IV 250 / 250 Nitroglycerin Drip Premix 50 mg 250 / 250 In 250 ml @ Per Protocol IV. CONT TITRATE PRN Rx#:[id number] Oral 1000 / 1000 240 / 240 Output: Urine 1300 / 1300 1550 / 1550 Other: Date of Last Bowel Movement 09/13/18 - Constitutional no acute distress - Routine Neck Exam Absent: JVD - Routine Respiratory Exam Present: CTA bilaterally - Routine Cardiovascular Exam Present: RRR, S1, S2. Absent: murmur, gallop - Routine Abdominal Exam Present: soft, normoactive bowel sounds. Absent: tenderness, organomegaly - Routine Extremities Exam Absent: cyanosis, clubbing, edema Results 09/13/18 06:07 09/13/18 06:07 Cardiac Enzymes 09/12/18 Range/Units 12:13 CK-MB (CK-2) 170.7 H (0.5-3.6) ng/mL Lipids 09/12/18 Range/Units 12:13 Triglycerides 176 H (42-150) mg/dL Cholesterol 202 H (120-200) mg/dL HDL Cholesterol 50.1 (40.0-60.0) mg/dL Cholesterol/HDL Ratio 4.03 Ratio CBC 09/12/18 09/13/18 Range/Units 12:13 06:07 WBC 12.4 H 9.1 (4.0-11.0) th/mm3 RBC 4.27 L 3.95 L (4.50-5.90) mil/mm3 Hgb 14.6 13.1 (13.0-17.0) gm/dL Hct 41.0 37.6 L (39.0-51.0) % Plt Count 188 165 (150-450) th/mm3 Neut # (Auto) 10.1 H (1.8-7.7) th/mm3 Lymph # (Auto) 1.0 (1.0-4.8) th/mm3 [place] # (Auto) 1.2 H (0.0-0.9) th/mm3 Eos # (Auto) 0.0 (0.0-0.4) th/mm3 Baso # (Auto) 0.0 (0.0-0.2) th/mm3 Comprehensive Metabolic Panel 09/12/18 09/13/18 Range/Units 12:13 06:07 Sodium 132 L 135 L (136-145) meq/L Potassium 4.9 4.0 D (3.5-5.1) meq/L Chloride 100 101 (98-107) meq/L Carbon Dioxide 25.9 24.1 (21.0-32.0) meq/L BUN 15 12 (7-18) mg/dL Creatinine 1.14 1.26 (0.60-1.30) mg/dL Calcium 8.5 8.4 L (8.5-10.1) mg/dL Intake and Output 09/13/18 09/14/18 09/14/18 22:59 06:59 14:59 Intake Total 1000 / 1000 490 / 490 Output Total 1300 / 1300 1550 / 1550 Balance -300 / -300 -1060 / -1060 Intake: IV 250 / 250 Nitroglycerin Drip Premix 50 mg 250 / 250 In 250 ml @ Per Protocol IV. CONT TITRATE PRN Rx#:[id number] Oral 1000 / 1000 240 / 240 Output: Urine 1300 / 1300 1550 / 1550 Other: Date of Last Bowel Movement 09/13/18 Weight 85 kg Assessment and Plan - Assessment (1) ST elevation (STEMI) myocardial infarction Code(s): I21.3 - ST elevation (STEMI) myocardial infarction of unspecified site Status: Acute Plan: Doing well s/p inferior/lateral STEMI, stents of RCA and left circumflex. No further angina. No definite CHF. Continues on Brilinta, aspirin, beta jenny , LASHELL-I. Patient's fairly diffuse proximal to mid LAD disease stented x 3 today. Hopefully discharge in am 09/15/18. (2) Ischemic cardiomyopathy Code(s): I25.5 - Ischemic cardiomyopathy Status: Chronic Plan: EF about 30% by cath, suspect will improve after revascularization. No acute CHF. Continue beta jenny, LASHELL-I, echo in 90 days to reassess LV function. (3) Hyperlipidemia Code(s): E78.5 - Hyperlipidemia, unspecified Status: Chronic Plan: Suboptimal lipid profile. Recommend atorvastatin 40 mg qd, recheck lipid profile in 8 weeks. (4) Hypertension Code(s): I10 - Essential (primary) hypertension Status: Chronic Plan: BP's much better, now mostly normotensive. Continue same. - Plan Code Status: full code Discussed Condition With: patient (1) ST elevation (STEMI) myocardial infarction Qualifiers: Involved coronary artery: left circumflex coronary artery Qualified Code(s): I21.21 - ST elevation (STEMI) myocardial infarction involving left circumflex coronary artery (3) Hyperlipidemia Qualifiers: Hyperlipidemia type: mixed hyperlipidemia Qualified Code(s): E78.2 - Mixed hyperlipidemia (4) Hypertension Qualifiers: Hypertension type: essential hypertension Qualified Code(s): I10 - Essential (primary) hypertension
--- NOTE | 2018-09-14 10:28 | CATHPROC ---
[facility] HIS Report Study Information Study Number Admission Scheduled Start Study Start [id number] Sep 12 2018 12:33AM 09/14/2018 Sep 14 2018 9:15AM [place] Service Electrophysiology Study Admit Source Facility Department Emergency department [facility] Physician and Clinical Staff Initial Honorio Gray Nurse Recruiter Wendi Richards,RN Nurse Recruiter Raven Fernandez,KAYLIN Recorder [place] Rodriguez,RT(R) ScrPhylicia Conde,RT(R) (BS) Procedures Performed Procedure Location (Site) Vessel Name Coronary Angiograms LCA Left Coronary Drug Eluting Inflatio LAD Mid Left Coronary Drug Eluting Inflatio LAD Prox Left Coronary L Heart Cath PTCA LAD Mid Left Coronary PTCA LAD Prox Left Coronary Wire insertion Fem Art (right) Femoral Art Equipment Time 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 EDU MEDICAL ANGIOSEAL, FR6 VIP FR 6 Used *[id number] 09:16 [employer] BLANKET,WARM AIR CCL * Used *[id number] 09:16 [employer] PACK, CCL CUSTOM * Used *[id number] 09:16 [employer] PACER PEN, SKIN DUAL W/ RULER * Used *[id number] 09:53 [employer] BALLOON, 2.5 X 15MM EUPHORA 15MM Used *[id number] 09:56 [employer] STENT, 2.5 15MM VERNA 2.5 15MM Used *[id number] 10:04 [employer] STENT, 2.5 22MM VERNA 2.5 22MM [id number] Used [id number] 10:00 [employer] STENT, 2.75 15MM VERNA 2.75 15MM Used *[id number] 09:55 [employer] MEDICAL 30 KWAN INDEFLATOR Used *[id number] 09:16 [employer] MEDICAL SHEATH, FR6.5 PRELUDE 11CM FR 6.5 038ACT Used *[id number] 09:16 [employer] WIRE, 3MMJ .035 180CM 180CM Used *[id number] 09:16 NAMIC MANIFOLD, 4 PORT * Used *[id number] 09:16 [employer] OMNIPAQUE, 350 MG, 150ML 150ML [id number] Used Equipment Model, Serial, Lot Number and Expiration Data Description Model Number Serial Number Lot Number Expiration Date ANGIOSEAL, FR6 VIP [id number] 04-25-2019 STENT, 2.5 15MM VERNA [id number] 12-02-2019 STENT, 2.5 22MM VERNA [id number] 03-03-2020 STENT, 2.75 15MM VERNA [id number] 04-05-2020 History: Current Medications Medication Dosage/Unit Route Frequency Last Date/Time Taken NTG SL HEPARIN ASA BRILLINTA History: Allergies Allergy Reaction No Known Allergies Blister History: Risk Factors Family History of Hypertension Dyslipidemia Previous CA Previous Heart Failure Premature CAD Yes Yes No No No Prior Valve Prior PCI Prior PCIDate Prior CABG Surgery No Yes 09/12/2018 No Cerebrovascular Peripheral Artery Chronic Lung On Dialysis Diabetes Disease Disease Disease No No No No No History: Symptoms/Diagnosis Selection Items Chest pain History: CV Disease Selection Items Cardiomyopathy Known CAD History: Stress Tests Stress or Imaging Studies Performed No History: Other Disease Selection Items CAD HTN History: Other Current Smoker No Labs Hgb (g/dl) Hct (%) RBC (MIL/MM3) WBC (l/cumm) Platelets (thousands) 11.60-17.00 35.00-51.00 4.00-5.90 4.00-11.00 150.00-450.00 13.1 37.6 3.9 9.1 165 Glucose (mg/dl) BUN (mg/dl) Creatinine (mg/dl) BUN:Creatinine (1:x) 74.00-106.00 7.00-18.00 0.50-1.30 10.00-20.00 127 12 1.2 10 Na (meq/l) K (meq/l) Cl (meq/l) CO2 (mmol/L) Ca (mg/dl) 136.00-145.00 3.50-5.10 98.00-107.00 21.00-32.00 8.50-10.10 135 4 101 24.1 8.4 PT (sec) PTT (sec) INR (PTT:PT) 9.80-11.60 24.30-30.10 0.90-1.10 9.6 33 0.9 Troponin I (ng/ml) CPK (u/l) CPK-MB (ng/ML) 0.02-0.05 26.00-308.00 0.50-3.60 0.06 94 14.3 Medication Medication Total Dose (Bolus/Oral) Medication Total Dosage/Unit 1% XYLOCAINE 20 mL HEPARIN 6000 units NTG (IC) 100 mcg VERSED 2 mg Medications (Bolus/Oral) Medication Time Given Dosage/Unit Administered By Reason VERSED 09/14/2018 9:46:44 AM 2 mg Wendi Richards 2 mg VERSED given in lab by Wendi Richards RN in Left Forearm via Peripheral IV. 1% XYLOCAINE 09/14/2018 9:48:14 AM 20 mL Wendi Richards 20 mL 1% XYLOCAINE given in lab by Wendi Richards RN via Subcutaneous. HEPARIN 09/14/2018 9:51:23 AM 6000 units Wendi Richards 6000 units HEPARIN given in lab by Wendi Richards RN in Left Forearm via Peripheral IV. 09/14/2018 10:01:12 NTG (IC) 100 mcg Phylicia Ayala AM 100 mcg NTG (IC) given in lab by Phylicia Ayaal RT(R) (BS) via Intra-coronary. Medication (Drip) Medication Time Given Dosage/Unit Concentration/Unit Diluent (ml) Solution IV Solutions 09/14/2018 9:24:52 AM 0 mL (IV) 500 NaCl .9 IV Solutions given in lab by Wendi Richards RN in Left Forearm via Peripheral IV. Pump/Drip Flow = 20 ml/hr using NaCl .9. NITROGLYCERIN DRIP 09/14/2018 9:40:00 AM 13.33 mcg/min 50 mg 250 D5W Patient arrived on 13.33 mcg/min NITROGLYCERIN DRIP in Right Antecubital via Peripheral IV. Pump/Drip Flow = 4 ml/hr using D5W with a concentration of 50 mg in 250 ml. NITROGLYCERN DRIP 09/14/2018 10:01:37 0 units/hr 0 STOPPED AM 0 units/hr NITROGLYCERN DRIP STOPPED given in lab by Wendi Richards, RN. Pump/Drip Flow = 0 ml/hr us ing [Solution Name]. Initial Case Assessment Cardiovascular HR Rhythm NIBP Chest Pain 85 Sinus 126/73 0 Edema Present Skin color Skin None Normal Warm Dry Circulatory - Right Pulses Dorsalis Pedis Femoral 2 2 Scale (0,1,2,3,4,d) Circulatory - Left Pulses Dorsalis Pedis Femoral 2 2 Scale (0,1,2,3,4,d) Neurological State Oriented to time-place- Alert Moves all extremities person Respiration - General Respiration Rate SpO2 (%) O2 (lpm) (B/min) 16 96 0 Final Case Assessment Cardiovascular HR Rhythm NIBP Chest Pain 89 Sinus 140/84 0 Edema Present Skin color Skin None Normal Warm Circulatory - Right Pulses Dorsalis Pedis Femoral 2 2 Scale (0,1,2,3,4,d) Circulatory - Left Pulses Dorsalis Pedis Femoral 2 2 Scale (0,1,2,3,4,d) Neurological State Oriented to time-place- Alert Moves all extremities person Respiration - General Respiration Rate SpO2 (%) O2 (lpm) (B/min) 23 96 0 Chronological Log Time Study Chronological Log 9:24:32 Patient arrived via Bed. 9:24:33 Patient Name, D.O.B, / Armband Verified By R.N. 9:24:34 Consent signed by the physician and the patient and verified by the [facility] staff. 9:24:35 Pre-op and post- op instructions given; patient acknowledges understanding of instructions. 9:24:36 Verbal Stimulation=2 Physical Stimulation=2 Airway=2 Respiration=2 TOTAL=8. (0=absent, 1=li mited, 2=present) 9:24:37 Presedation assessment performed by [facility] RN. 9:24:43 Patient has been NPO for More than 6Hrs. 9:24:44 Skin Breakdown- Right groin bruising from prior cath. 9:24:45 Patient Warmer Placed on the Table. 9:24:47 Dominic Prominences Protected 9:24:50 A # 20 IV was noted in the Forearm (left). Grade = 0 IV Solutions given in lab by Wendi Richards, RN in Left Forearm via Peripheral IV. Pump/Drip F low = 20 ml/hr using 9:24:52 NaCl .9. 9:24:53 History and physical on the chart or being dictated. Assessment: Initial Case, HR=85 BPM, Rhythm=Sinus, PGCJ=973/73 mmhg, Chest Pain=0, Edema=None, Color=Normal, Skin = Warm, Dry Right Pulses: Christiano Ped=2, Femoral=2 9:24:54 Left Pulses: Christiano Ped=2, Femoral=2 Neurological: State=Alert, Ox3, SEE Respiration: Resp=16 B/min, SpO2=96 %, O2=0 lpm 9:28:40 A # 20 IV was noted in the Antecubital (left). Grade = 0 9:30:24 Reference ECG taken 9:30:51 Vitals capture stopped. Vitals capture started with the following parameters, Patient=Adult, Interval=5 min, Initial Pre xsagu=800 mmHg, 9:31:01 Deflation Rate=5 mmHg, Cuff placed on Left Arm 9:31:48 HR=83 bpm, YTGG=098/73 mmhg, SpO2=98.0 %, Resp=15 B/min, Pain=0, Xochilt=10, Berman=2 9:36:24 Bilateral groins prepped with 2% chlorhexidine, and draped after a 3 minute waiting time. 9:36:34 HR=82 bpm, VWAM=068/77 mmhg, SpO2=96.0 %, Resp=16 B/min, Pain=0, Xochilt=10, Berman=2 9:38:20 MD paged 9:39:55 MD responded Patient arrived on 13.33 mcg/min NITROGLYCERIN DRIP in Right Antecubital via Peripheral IV. Pump /Drip Flow = 4 9:40:00 ml/hr using D5W with a concentration of 50 mg in 250 ml. 9:40:00 Pressure channel 2 zeroed. 9:41:37 HR=83 bpm, EHKL=163/69 mmhg, SpO2=96.0 %, Resp=13 B/min, Pain=0, Xochilt=10, Berman=2 9:44:29 MD arrived. 9:46:32 HR=83 bpm, JIYA=586/77 mmhg, SpO2=96.0 %, Resp=17 B/min, Pain=0, Xochilt=10, Berman=2 9:46:44 2 mg VERSED given in lab by Wendi Richards, KAYLIN in Left Forearm via Peripheral IV. Time Out. Correct patient, correct procedure, correct physician, labs, allergies, and equipment verified with cardiovascular lab director 9:47:11 team present. Fire risk assesment completed (see hard stop sheet for coding). Time Out Concu rred by MD and individual staff in procedure. 9:48:14 20 mL 1% XYLOCAINE given in lab by Wendi Richards, KAYLIN via Subcutaneous. 9:48:15 Case Start 9:49:03 Access site was Right Femoral Artery. 9:49:04 A SHEATH, FR6.5 PRELUDE 11CM FR 6.5 was advanced into the Fem Art (right) using the Percutan eous technique. A XB 3.5 GUIDE CATHETER FR 6 was advanced over a wire. OMNIPAQUE, 350 MG, 150ML 150ML was used f or 9:50:07 injections. 9:50:32 The LCA was injected and visualized at various angles. OMNIPAQUE, 350 MG, 150ML 150ML used. 9:51:23 6000 units HEPARIN given in lab by Wendi Richards RN in Left Forearm via Peripheral IV. 9:51:33 HR=82 bpm, XISA=264/74 mmhg, SpO2=95.0 %, Resp=18 B/min, Pain=0, Xochilt=10, Berman=2 9:54:20 A wire was inserted via Fem Art (right). 9:54:21 Interventional wire has crossed the lesion 9:54:27 A BALLOON, 2.5 X 15MM EUPHORA 15MM was inserted over WIRE, ASAHI PROWATER 180CM 180CM via th e LAD Mid. A BALLOON, 2.5 X 15MM EUPHORA 15MM over a WIRE, ASAHI PROWATER 180CM 180CM in the LAD Mid was in flated 9:54:29 using a 30 KWAN INDEFLATOR at 10 kwan for 23 sec. A BALLOON, 2.5 X 15MM EUPHORA 15MM over a WIRE, ASAHI PROWATER 180CM 180CM in the LAD Prox was i nflated 9:55:04 using a 30 KWAN INDEFLATOR at 13 kwan for 30 sec. Recorded Pressure: Ao, HR=83, Condition=Condition 1 9:55:26 (Aorta) Ao 101/60/79 9:56:25 Balloon Removed. 9:56:29 The LCA was injected and visualized at various angles. OMNIPAQUE, 350 MG, 150ML 150ML used. 9:56:32 HR=85 bpm, BXQS=945/71 mmhg, SpO2=95.0 %, Resp=22 B/min, Pain=0, Xochilt=10, Berman=2 9:56:52 Activated Clotting Time Drawn A STENT, 2.5 15MM VERNA 2.5 15MM was advanced through a XB 3.5 GUIDE CATHETER FR 6 over a WIRE, A JAS 9:57:02 PROWATER 180CM 180CM. A STENT, 2.5 15MM VERNA 2.5 15MM was deployed using a 30 KWAN INDEFLATOR at 13 atmospheres for 30 seconds in 9:57:17 the LAD Mid. 9:57:54 Delivery device removed A STENT, 2.75 15MM VERNA 2.75 15MM was advanced through a XB 3.5 GUIDE CATHETER FR 6 over a WIRE , ASAHI 9:59:10 PROWATER 180CM 180CM. A STENT, 2.75 15MM VERNA 2.75 15MM was deployed using a 30 KWAN INDEFLATOR at 13 atmospheres for 30 seconds 9:59:54 in the LAD Prox. 10:00:33 Delivery device removed 10:01:12 100 mcg NTG (IC) given in lab by Phylicia Ayala RT(R) (BS) via Intra-coronary. 10:01:24 The LCA was injected and visualized at various angles. contrast used. 10:01:34 HR=86 bpm, ZNYX=837/75 mmhg, SpO2=93.0 %, Resp=24 B/min, Pain=0, Xochilt=10, Berman=2 0 units/hr NITROGLYCERN DRIP STOPPED given in lab by Wendi Richards RN. Pump/Drip Flow = 0 ml /hr using 10:01:37 [Solution Name]. 10:02:55 ACT (Normal Range 90-180) = 313 A STENT, 2.5 22MM VERNA 2.5 22MM was advanced through a XB 3.5 GUIDE CATHETER FR 6 over a WIRE, ASAHI 10:03:39 PROWATER 180CM 180CM. A STENT, 2.5 22MM VERNA 2.5 22MM was deployed using a 30 KWAN INDEFLATOR at 14 atmospheres for 30 seconds in 10:04:22 the LAD Mid. 10:05:15 Delivery device removed 10:05:20 The LCA was injected and visualized at various angles. OMNIPAQUE, 350 MG, 150ML 150ML used . 10:05:36 Wire removed 10:05:40 Catheter was removed 10:06:37 HR=84 bpm, OQFQ=352/81 mmhg, SpO2=93.0 %, Resp=20 B/min, Pain=0, Xochilt=10, Berman=2 10:06:43 An injection in the Fem Art (right) was made through the SHEATH, FR6.5 PRELUDE 11CM FR 6.5. 10:07:25 Case End (Physician broke scrub) 10:08:00 An injection in the Fem Art (right) was made through the sheath. 10:08:10 ANGIOSEAL, FR6 VIP FR 6 placement in the Fem Art (right) 10:11:38 HR=90 bpm, BAHJ=973/84 mmhg, SpO2=94.0 %, Resp=14 B/min, Pain=0, Xochilt=10, Berman=2 10:13:11 No case complications noted. 10:13:12 Cine recording checked. 10:13:24 CICU called. Spoke to NIMESH. 10:14:05 Bedside Report will be given. 10:14:28 A Left Heart Cath was performed. Assessment: Final Case, HR=89 BPM, Rhythm=Sinus, ADCN=793/84 mmhg, Chest Pain=0, Edema=None, Color=Normal, Skin = Warm Right Pulses: Christiano Ped=2, Femoral=2 10:14:38 Left Pulses: Christiano Ped=2, Femoral=2 Neurological: State=Alert, Ox3, SEE Respiration: Resp=23 B/min, SpO2=96 %, O2=0 lpm 10:15:50 Sterile dressing applied to site 10:16:39 HR=88 bpm, LZWY=471/83 mmhg, SpO2=97.0 %, Resp=13 B/min, Pain=0, Xochilt=10, Berman=2 10:21:11 Vitals capture stopped. 10:22:03 [facility] End Study - Contrast Media Used In Study Contrast Total Opened (mL) Total Used (mL) Total Wasted (mL) Omnipaque 150 70 80 End Study - Maximum Contrast Load Max Contrast Load (mL) 354.2 End Study - Radiation Exposure Fluoro Time (minutes) 4.2 End Study - Patient Disposition Complications Transferred To Interventional Outcome No Telemetry Bed successful
[2018-09-14] MEDS ORDERED: Iohexol 350 MG/ML 100 ML Vial (for Cath Lab) IVCONTRAST ONE (11:05)
--- NOTE | 2018-09-14 12:04 | MA ---
cc: Honorio Drew MD DATE: 09/07/2018 PROCEDURE: Angioplasty and stent x 3 of the proximal to mid LAD. PROCEDURE NOTES: The patient was brought to the cardiac catheterization laboratory in a fasting state after having signed informed consent. The right groin was prepped and draped as per policy and anesthetized with 1% lidocaine. Arterial access was obtained via the right femoral artery and a 6-[place] sheath placed. Adequate heparin was given during the procedure to achieve an ACT greater than 250 seconds. Using a 6-[place] XB 3.5 guiding catheter, the ostium of the left main was engaged. Initial guiding shots reveal 50% stenosis of the very proximal LAD and somewhat eccentric 60-70% disease of the distal third of the proximal LAD. In the distal third of the mid LAD, there is 70-75% tubular stenosis. Using a 0.014 [place] guidewire, the relatively diffuse disease was crossed without difficulty and the tip of the wire positioned distally. Predilation was done using a 2.5 x 15 mm Euphora balloon catheter, which was inflated in the mid and proximal LAD. Stenting of the most distal disease was done using a 2.5 x 15 mm Resolute Comstock stent, which was deployed at 13 atmospheres for 30 seconds. Stenting of the most proximal disease was done using a 2.75 x 15 mm Resolute Comstock stent, which was deployed at 13 atmospheres for 30 seconds. At this point, the disease between the stents seems more severe in nature, approaching 60-65% in severity, so it was decided to stent this region. A 2.5 x 22 mm Resolute Daniel stent was carefully positioned between the 2 first stents and then deployed using a balloon inflation of approximately 14 atmospheres for 30 seconds. Final angiography shows overall good results with reduction of the diffuse disease to roughly 0% residual with no definite evidence for dissection or distal embolization. Of note, the recently placed mid left circumflex stent is widely patent. The patient tolerated the procedure well. There were no apparent, immediate complications. CONCLUSIONS: Status post successful stent x 3 of diffuse disease in the proximal to mid left anterior descending. MD BENITO Ortiz/lynn/nico , 10:14 AM , 10:20 AM SEVER[place]
--- NOTE | 2018-09-14 13:31 | P.PNIM ---
Subjective Interval history: The patient was seen following catheterization. He was hungry. He denied any chest pain or shortness of breath. He had no acute complaints. Discussed with nursing. Physical Exam Vital signs: Vital Signs 09/13/18 14:00 09/13/18 15:00 09/13/18 16:00 Temperature 98.2 F Pulse Rate 92 H 100 H 98 H Respiratory Rate 16 Blood Pressure 142/75 H Pulse Oximetry 97 09/13/18 17:00 09/13/18 18:00 09/13/18 20:00 Temperature 99.1 F Pulse Rate 68 72 80 Respiratory Rate 18 Blood Pressure 142/77 H Pulse Oximetry 96 09/13/18 21:00 09/13/18 22:00 09/13/18 23:00 Temperature Pulse Rate 92 H 84 82 Respiratory Rate Blood Pressure Pulse Oximetry 09/14/18 00:00 09/14/18 01:00 09/14/18 02:00 Temperature 98.6 F Pulse Rate 87 84 84 Respiratory Rate 18 Blood Pressure 105/66 Pulse Oximetry 98 09/14/18 03:00 09/14/18 04:00 09/14/18 05:00 Temperature 98.6 F Pulse Rate 82 89 78 Respiratory Rate 18 Blood Pressure 127/76 Pulse Oximetry 97 09/14/18 06:00 09/14/18 07:00 09/14/18 08:00 Temperature 98.1 F Pulse Rate 86 92 H 81 Respiratory Rate 18 Blood Pressure 107/68 Pulse Oximetry 97 09/14/18 09:00 09/14/18 12:00 09/14/18 13:00 Temperature 97.9 F Pulse Rate 84 88 82 Respiratory Rate 18 Blood Pressure 143/85 H Pulse Oximetry 98 Intake & Output 09/13/18 09/14/18 09/14/18 18:59 06:59 18:59 Intake Total 1000 / 1000 490 / 490 Output Total 1300 / 1300 1550 / 1550 Balance -300 / -300 -1060 / -1060 Weight 85 kg Intake: IV 250 / 250 Nitroglycerin Drip Premix 50 mg 250 / 250 In 250 ml @ Per Protocol IV. CONT TITRATE PRN Rx#:[id number] Oral 1000 / 1000 240 / 240 Output: Urine 1300 / 1300 1550 / 1550 Other: Date of Last Bowel Movement 09/13/18 Narrative: General: NAD. HEENT: NC, AT. Cardiac: RRR. No murmur appreciated. Lungs: CTAB. GI: Soft, nontender, nondistended. Extremities: No edema. Cath site on right groin without hematoma. Neuro: No gross deficits. Results - Labs CBC & Chem 7: 09/13/18 06:07 09/13/18 06:07 Assessment and Plan - Plan STEMI The pt was brought in as a STEMI alert. EKG with lateral ST elevations and reciprocal changes. S/p cath: Severe 3-vessel coronary artery disease; Status post angioplasty and stent of the mid left circumflex, which is probably the infarct-related vessel; Status post angioplasty and stent of the proximal and distal right coronary; Reduced left ventricular systolic function with ejection fraction estimated at 30% due to global hypokinesis. S/p cath 09/14; status post successful stent x3 of diffuse disease in the proximal to mid left anterior descending. -telemetry. -continue cardiac regimen. -pain control, oxygen as needed. -cardiology following. HTN Improved. -continue enalapril, Coreg and amlodipine. -clonidine as needed. HLP On Zetia as an outpt. LDL is elevated. -atorvastatin started. Hyperglycemia Likely a stress reaction. A1c 5.9%. -monitor as needed. PPx: Heparin Discharge Planning: Await cardiology clearance
[2018-09-15] MEDS: Sod Chloride 0.9% Inj 1,000 ML IV.CONT SCH (04:38)
[2018-09-15 06:53] LABS: Baso % (Auto) 0.2 % (0.0-2.0); Eos # (Auto) 0.1 th/mm3 (0.0-0.4); Eos % (Auto) 1.9 % (0.0-4.0); Hematocrit 36.7 % (39.0-51.0); Hemoglobin 12.4 gm/dL (13.0-17.0); Lymph # (Auto) 0.9 th/mm3 (1.0-4.8); Lymph % (Auto) 13.2 % (9.0-44.0); Mean Corpuscular HGB Conc 33.9 % (32.0-36.0); Mean Corpuscular Hemoglobin 33.3 pg (27.0-34.0); Mean Corpuscular Volume 98.1 fL (80.0-100.0); Mean Platelet Volume 8.4 fL (7.0-11.0); Neut # (Auto) 4.8 th/mm3 (1.8-7.7); Neut % (Auto) 70.7 % (16.0-70.0); Platelet Count 156 th/mm3 (150-450); Red Blood Count 3.74 mil/mm3 (4.50-5.90); Red Cell Distribution Width 13.6 % (11.6-17.2); White Blood Count 6.8 th/mm3 (4.0-11.0)
[2018-09-15 07:57] LABS: Calcium 8.4 mg/dL (8.5-10.1); Carbon Dioxide 23.9 meq/L (21.0-32.0); Potassium 4.3 meq/L (3.5-5.1)
[2018-09-15] MEDS: Carvedilol 12.5 MG Tablet PO SCH (09:02)
[2018-09-15] MEDS: amLODIPine 10 MG Tablet PO SCH (09:03)
--- NOTE | 2018-09-15 09:39 | P.PNCA ---
Subjective Interval history: Denies angina, dyspnea, dizziness, palpitations. Slept very well. Medications and Allergies Active Medications: Active Medications Acetaminophen (Tylenol) 650 mg PO Q4H PRN PRN Reason: temp>100.4/JAMISON Last Admin: 09/13/18 04:50 Dose: 650 mg Amlodipine Besylate (Norvasc) 10 mg PO DAILY [facility] Last Admin: 09/15/18 09:03 Dose: 10 mg Aspirin (Aspirin Chew) 81 mg PO DAILY [facility] Last Admin: 09/15/18 09:03 Dose: 81 mg Atorvastatin Calcium (Lipitor) 40 mg PO HS [facility] Last Admin: 09/14/18 21:03 Dose: 40 mg Atropine Sulfate (Atropine Inj) 0.5 mg IV.PUSH UNSCH PRN PRN Reason: VAGAL REPONSE Calcium Carbonate (Tums Chew) 500 mg CHEW Q2H PRN PRN Reason: abdominal discomfort Last Admin: 09/12/18 15:02 Dose: 500 mg Carvedilol (Coreg) 12.5 mg PO BID [facility] Last Admin: 09/15/18 09:02 Dose: 12.5 mg Clonidine HCl (Catapres) 0.1 mg PO Q6H PRN PRN Reason: SYS BP GREATER THAN 160 MMHG Diphenhydramine HCl (Benadryl) 50 mg PO [employer] [facility] Stop: 09/17/18 11:44 Enalapril Maleate (Vasotec) 10 mg PO BID [facility] Last Admin: 09/15/18 09:02 Dose: 10 mg Fentanyl Citrate (Fentanyl Inj) 50 mcg IV.PUSH [employer] [facility] Stop: 09/17/18 11:44 Nitroglycerin/Dextrose (Nitroglycerin Drip Premix) 50 mg in 250 mls @ 0 mls/hr IV.CONT TITRATE PRN; Protocol PRN Reason: Per Protocol Last Titration: 09/14/18 10:00 Dose: 0 mcg/min, 0 mls/hr Tirofiban/Sodium Chloride (Aggrastat Inj) 12,500 mcg in 250 mls @ 0 mls/hr IV.CONT .Q0M [facility]; Protocol Sodium Chloride (Ns Inj) 1,000 mls @ 75 mls/hr IV.CONT .[id number] [facility] Last Infusion: 09/15/18 05:08 Dose: 0 mls/hr Lidocaine HCl (Xylocaine 2% Jelly) 5 ml TOPICAL PRN PRN PRN Reason: For male guzman catheter insert Midazolam HCl (Versed Inj) 1 mg IV.PUSH [employer] [facility] Stop: 09/17/18 11:44 Morphine Sulfate (Morphine Inj) 2 mg IV.PUSH Q30M PRN PRN Reason: BREAKTHROUGH PAIN Last Admin: 09/12/18 06:24 Dose: 2 mg Pantoprazole Sodium (Protonix) 40 mg PO DAILY [facility] Last Admin: 09/15/18 09:01 Dose: 40 mg Sodium Chloride (Ns Flush) 2 ml IV.FLUSH BID [facility] Last Admin: 09/15/18 09:03 Dose: Not Given Sodium Chloride (Ns Flush) 2 ml IV.FLUSH PRN PRN PRN Reason: FLUSH AFTER USING IV ACCESS Sodium Chloride (Ns Flush) 2 ml IV.FLUSH BID [facility] Last Admin: 09/15/18 09:03 Dose: 2 ml Sodium Chloride (Ns Flush) 2 ml IV.FLUSH PRN PRN PRN Reason: FLUSH AFTER USING IV ACCESS Temazepam (Restoril) 15 mg PO HS PRN PRN Reason: SLEEP Ticagrelor (Brilinta) 90 mg PO BID [facility] Last Admin: 09/15/18 09:01 Dose: 90 mg Allergies Allergy/AdvReac Type Severity Reaction Status Date / Time No Known Allergies Allergy Blister Uncoded 09/12/18 00:54 Home Medications Medication Instructions Recorded Confirmed Type ezetimibe 10 mg PO DAILY 09/12/18 09/12/18 History losartan-hydrochlorothiazide 1 tab PO DAILY 09/12/18 09/12/18 History metoprolol tartrate 100 mg PO BID 09/12/18 09/12/18 History Physical Exam Vital signs: Vital Signs 09/14/18 12:00 09/14/18 13:00 09/14/18 14:00 Temperature 97.9 F Pulse Rate 88 82 88 Respiratory Rate 18 Blood Pressure 143/85 H Pulse Oximetry 98 09/14/18 15:00 09/14/18 16:00 09/14/18 16:53 Temperature 97.9 F Pulse Rate 86 90 89 Respiratory Rate 18 Blood Pressure 133/81 Pulse Oximetry 96 09/14/18 17:08 09/14/18 17:28 09/14/18 19:00 Temperature Pulse Rate 94 H 96 H Respiratory Rate Blood Pressure Pulse Oximetry 96 09/14/18 20:00 09/14/18 21:00 09/14/18 22:00 Temperature 98.5 F Pulse Rate 96 H 92 H 90 Respiratory Rate 16 Blood Pressure 128/78 Pulse Oximetry 96 09/14/18 23:00 09/14/18 23:30 09/15/18 00:00 Temperature 98.7 F Pulse Rate 88 86 77 Respiratory Rate 16 Blood Pressure 120/75 Pulse Oximetry 96 09/15/18 01:00 09/15/18 02:00 09/15/18 03:00 Temperature Pulse Rate 87 83 89 Respiratory Rate Blood Pressure Pulse Oximetry 09/15/18 04:00 09/15/18 05:00 09/15/18 06:00 Temperature 98.3 F Pulse Rate 86 78 82 Respiratory Rate 16 Blood Pressure 126/76 Pulse Oximetry 98 09/15/18 07:00 09/15/18 08:00 09/15/18 09:00 Temperature 98.1 F Pulse Rate 85 95 H 90 Respiratory Rate 16 Blood Pressure 122/73 Pulse Oximetry 99 Intake & Output 09/14/18 09/15/18 09/15/18 18:59 06:59 18:59 Intake Total 1720 / 1720 480 / 480 Output Total 800 / 800 500 / 500 Balance 920 / 920 -20 / -20 Weight 85 kg Intake: IV 1000 / 1000 0 / 0 NS Inj 1,000 ML @ 75 mls/hr IV. 1000 / 1000 0 / 0 CONT .[id number] [facility] Rx#:[id number] Oral 720 / 720 480 / 480 Output: Urine 800 / 800 500 / 500 Other: Date of Last Bowel Movement 09/14/18 09/14/18 # Bowel Movements 1 0 - Constitutional no acute distress - Routine Neck Exam Absent: JVD - Routine Respiratory Exam Present: CTA bilaterally - Routine Cardiovascular Exam Present: RRR, S1, S2. Absent: murmur, gallop - Routine Abdominal Exam Present: soft, normoactive bowel sounds. Absent: tenderness, organomegaly - Routine Extremities Exam Absent: cyanosis, clubbing, edema Results 09/15/18 05:26 09/15/18 05:26 CBC 09/15/18 Range/Units 05:26 WBC 6.8 (4.0-11.0) th/mm3 RBC 3.74 L (4.50-5.90) mil/mm3 Hgb 12.4 L (13.0-17.0) gm/dL Hct 36.7 L (39.0-51.0) % Plt Count 156 (150-450) th/mm3 Neut # (Auto) 4.8 (1.8-7.7) th/mm3 Lymph # (Auto) 0.9 L (1.0-4.8) th/mm3 [place] # (Auto) 1.0 H (0.0-0.9) th/mm3 Eos # (Auto) 0.1 (0.0-0.4) th/mm3 Baso # (Auto) 0.0 (0.0-0.2) th/mm3 Comprehensive Metabolic Panel 09/15/18 Range/Units 05:26 Sodium 142 (136-145) meq/L Potassium 4.3 (3.5-5.1) meq/L Chloride 110 H D (98-107) meq/L Carbon Dioxide 23.9 (21.0-32.0) meq/L BUN 18 (7-18) mg/dL Creatinine 1.41 H (0.60-1.30) mg/dL Calcium 8.4 L (8.5-10.1) mg/dL Intake and Output 09/14/18 09/15/18 09/15/18 22:59 06:59 14:59 Intake Total 720 / 720 480 / 480 Output Total 800 / 800 500 / 500 Balance -80 / -80 -20 / -20 Intake: IV 0 / 0 NS Inj 1,000 ML @ 75 mls/hr IV. 0 / 0 CONT .[id number] [facility] Rx#:[id number] Oral 720 / 720 480 / 480 Output: Urine 800 / 800 500 / 500 Other: Date of Last Bowel Movement 09/14/18 09/14/18 # Bowel Movements 1 0 Weight 85 kg Assessment and Plan - Assessment (1) ST elevation (STEMI) myocardial infarction Code(s): I21.3 - ST elevation (STEMI) myocardial infarction of unspecified site Status: Acute Plan: Doing well s/p acute inferior/lateral STEMI, stents of RCA and left circumflex 09/12/18 and stent x 3 of proximal to mid LAD yesterday. No further angina. No definite CHF. Continues on Brilinta, aspirin, beta jenny, LASHELL-I. OK to discharge home today from cardiac standpoint, 3-4 week f/u with me, low level activity until he sees me in the office. (2) Ischemic cardiomyopathy Code(s): I25.5 - Ischemic cardiomyopathy Status: Chronic Plan: EF about 30% by cath, suspect will improve after revascularization. No acute CHF. Continue beta jenny, LASHELL-I, echo in 90 days to reassess LV function. (3) Hyperlipidemia Code(s): E78.5 - Hyperlipidemia, unspecified Status: Chronic Plan: Suboptimal lipid profile. Recommend continue atorvastatin 40 mg qd, recheck lipid profile in 8 weeks. (4) Hypertension Code(s): I10 - Essential (primary) hypertension Status: Chronic Plan: BP's much better, now mostly normotensive. Continue same. - Plan Code Status: full code Discussed Condition With: patient (1) ST elevation (STEMI) myocardial infarction Qualifiers: Involved coronary artery: left circumflex coronary artery Qualified Code(s): I21.21 - ST elevation (STEMI) myocardial infarction involving left circumflex coronary artery (3) Hyperlipidemia Qualifiers: Hyperlipidemia type: mixed hyperlipidemia Qualified Code(s): E78.2 - Mixed hyperlipidemia (4) Hypertension Qualifiers: Hypertension type: essential hypertension Qualified Code(s): I10 - Essential (primary) hypertension
--- NOTE | 2018-09-15 10:40 | P.PN ---
Subjective Interval history: Follow-up ST elevation [place] September 15, 2018-patient seen and examined, denies any chest pain or shortness of breath. Looking forward to go home today. Physical Exam Vital signs: Vital Signs 09/14/18 12:00 09/14/18 13:00 09/14/18 14:00 Temperature 97.9 F Pulse Rate 88 82 88 Respiratory Rate 18 Blood Pressure 143/85 H Pulse Oximetry 98 09/14/18 15:00 09/14/18 16:00 09/14/18 16:53 Temperature 97.9 F Pulse Rate 86 90 89 Respiratory Rate 18 Blood Pressure 133/81 Pulse Oximetry 96 09/14/18 17:08 09/14/18 17:28 09/14/18 19:00 Temperature Pulse Rate 94 H 96 H Respiratory Rate Blood Pressure Pulse Oximetry 96 09/14/18 20:00 09/14/18 21:00 09/14/18 22:00 Temperature 98.5 F Pulse Rate 96 H 92 H 90 Respiratory Rate 16 Blood Pressure 128/78 Pulse Oximetry 96 09/14/18 23:00 09/14/18 23:30 09/15/18 00:00 Temperature 98.7 F Pulse Rate 88 86 77 Respiratory Rate 16 Blood Pressure 120/75 Pulse Oximetry 96 09/15/18 01:00 09/15/18 02:00 09/15/18 03:00 Temperature Pulse Rate 87 83 89 Respiratory Rate Blood Pressure Pulse Oximetry 09/15/18 04:00 09/15/18 05:00 09/15/18 06:00 Temperature 98.3 F Pulse Rate 86 78 82 Respiratory Rate 16 Blood Pressure 126/76 Pulse Oximetry 98 09/15/18 07:00 09/15/18 08:00 09/15/18 09:00 Temperature 98.1 F Pulse Rate 85 95 H 90 Respiratory Rate 16 Blood Pressure 122/73 Pulse Oximetry 99 09/15/18 09:59 09/15/18 10:33 Temperature Pulse Rate 86 Respiratory Rate Blood Pressure Pulse Oximetry 99 Intake & Output 09/14/18 09/15/18 09/15/18 18:59 06:59 18:59 Intake Total 1720 / 1720 480 / 480 Output Total 800 / 800 500 / 500 Balance 920 / 920 -20 / -20 Weight 85 kg Intake: IV 1000 / 1000 0 / 0 NS Inj 1,000 ML @ 75 mls/hr IV. 1000 / 1000 0 / 0 CONT .[id number] [facility] Rx#:[id number] Oral 720 / 720 480 / 480 Output: Urine 800 / 800 500 / 500 Other: Date of Last Bowel Movement 09/14/18 09/14/18 # Bowel Movements 1 0 Narrative: GENERAL: NAD SKIN: Warm and dry. HEAD: Atraumatic. Normocephalic. EYES: Pupils equal and round. No scleral icterus. No injection or drainage. ENT: No nasal bleeding or discharge. Mucous membranes pink and moist. NECK: Trachea midline. No JVD. CARDIOVASCULAR: Regular rate and rhythm. RESPIRATORY: No accessory muscle use. Clear to auscultation. Breath sounds equal bilaterally. GASTROINTESTINAL: Abdomen soft, non-tender, nondistended. Hepatic and splenic margins not palpable. MUSCULOSKELETAL: Extremities without clubbing, cyanosis, or edema. No obvious deformities. NEUROLOGICAL: Awake and alert. No obvious cranial nerve deficits. Motor grossly within normal limits. Five out of 5 muscle strength in the arms and legs. Normal speech. PSYCHIATRIC: Appropriate mood and affect; insight and judgment normal. Results - Labs CBC & Chem 7: 09/15/18 05:26 09/15/18 05:26 Laboratory Results - last 24 hr 09/15/18 09/15/18 05:26 05:26 WBC 6.8 RBC 3.74 L Hgb 12.4 L Hct 36.7 L MCV 98.1 MCH 33.3 MCHC 33.9 RDW 13.6 Plt Count 156 MPV 8.4 Neut % (Auto) 70.7 H Lymph % (Auto) 13.2 [place] % (Auto) 14.0 H Eos % (Auto) 1.9 Baso % (Auto) 0.2 Neut # (Auto) 4.8 Lymph # (Auto) 0.9 L [place] # (Auto) 1.0 H Eos # (Auto) 0.1 Baso # (Auto) 0.0 WBC Differential . Differential Comment Auto diff final Sodium 142 Potassium 4.3 Chloride 110 H D Carbon Dioxide 23.9 Anion Gap 8 BUN 18 Creatinine 1.41 H Estimated GFR 48 L Random Glucose 113 H Calcium 8.4 L Total Creatine Kinase 106 - Procedures Left heart catheterization with stents placement Assessment and Plan - Plan 82-year-old man with STEMI -s/p acute inferior/lateral STEMI, stents of RCA and left circumflex 09/12/18 and stent x 3 of proximal to mid LAD 09/14/18. Continues on Brilinta, aspirin , beta jenny, LASHELL-I. -Appreciate input from cardiology Ischemic cardiomyopathy -EF of 30%, continue with beta-jenny and LASHELL inhibitor -Repeat 2D echo in 90 days HTN -continue enalapril, Coreg and amlodipine. -clonidine as needed. HLP On Zetia as an outpt. LDL is elevated. -Continue atorvastatin Hyperglycemia Likely a stress reaction. A1c 5.9%. -monitor as needed. PPx: Heparin
--- NOTE | 2018-09-15 12:00 | P.DS ---
Date of admission: 09/12/18 00:33 Primary care physician: UNKNOWN Brief History from admission: The patient is an 82-year-old male with a past medical history of hypertension and hyperlipidemia who is presenting to the hospital with chest and shoulder pain. The patient said that last night he had crab legs for dinner and drinks 2 david and water's. He then went to sleep and woke up around 11 PM with right -sided shoulder pain as well as central chest pain. He said the pain continued and he could not get comfortable. He went to rest in a recliner and that did not help. He took four Tums because he thought it might be secondary to indigestion and that did not help. He did not have any associated shortness of breath. He did feel sweaty at the time. He rated the overall pain as an 8 out of 10 in severity. He waited for 1/2-hour and since he did not get better he called for an ambulance. He arrived in the hospital as a STEMI alert and is status post catheterization. He complains of residual 6 out of 10 central chest pain. He denies any shortness of breath at this time. He feels like he needs to fart. He said his last bowel movement was yesterday. DS: Medications - Discharge Medications Prescriptions: amlodipine [Norvasc] 10 mg PO DAILY #30 tab aspirin 81 mg PO DAILY #30 tab atorvastatin 40 mg PO HS #30 tab carvedilol [Coreg] 12.5 mg PO BID #60 tab enalapril maleate 10 mg PO BID #60 tab ticagrelor [Brilinta] 90 mg PO BID #60 tab DS: Summary Hospital Course: While in hospital, patient was treated for: STEMI -s/p acute inferior/lateral STEMI, stents of RCA and left circumflex 09/12/18 and stent x 3 of proximal to mid LAD 09/14/18. 3D wave Brilinta, aspirin, beta jenny, LASHELL-I. -Appreciate input from cardiology Ischemic cardiomyopathy -EF of 30%, treated with beta-jenny and LASHELL inhibitor -Repeat 2D echo in 90 days HTN -Treated with enalapril, Coreg and amlodipine. -clonidine as needed. HLP On Zetia as an outpt. LDL is elevated. -Treated with atorvastatin Hyperglycemia Likely a stress reaction. A1c 5.9%. -monitor as needed. PPx: Heparin - Time Spent with Patient Total time spent providing and/or coordinating discharge services: Less than 30 minutes - Quality: VTE Deep Vein Thrombosis/Pulmonary Embolism Present on Admission: No Exam Vital signs: Vital Signs 09/14/18 12:00 09/14/18 13:00 09/14/18 14:00 Temperature 97.9 F Pulse Rate 88 82 88 Respiratory Rate 18 Blood Pressure 143/85 H Pulse Oximetry 98 09/14/18 15:00 09/14/18 16:00 09/14/18 16:53 Temperature 97.9 F Pulse Rate 86 90 89 Respiratory Rate 18 Blood Pressure 133/81 Pulse Oximetry 96 09/14/18 17:08 09/14/18 17:28 09/14/18 19:00 Temperature Pulse Rate 94 H 96 H Respiratory Rate Blood Pressure Pulse Oximetry 96 09/14/18 20:00 09/14/18 21:00 09/14/18 22:00 Temperature 98.5 F Pulse Rate 96 H 92 H 90 Respiratory Rate 16 Blood Pressure 128/78 Pulse Oximetry 96 09/14/18 23:00 09/14/18 23:30 09/15/18 00:00 Temperature 98.7 F Pulse Rate 88 86 77 Respiratory Rate 16 Blood Pressure 120/75 Pulse Oximetry 96 09/15/18 01:00 09/15/18 02:00 09/15/18 03:00 Temperature Pulse Rate 87 83 89 Respiratory Rate Blood Pressure Pulse Oximetry 09/15/18 04:00 09/15/18 05:00 09/15/18 06:00 Temperature 98.3 F Pulse Rate 86 78 82 Respiratory Rate 16 Blood Pressure 126/76 Pulse Oximetry 98 09/15/18 07:00 09/15/18 08:00 09/15/18 09:00 Temperature 98.1 F Pulse Rate 85 95 H 90 Respiratory Rate 16 Blood Pressure 122/73 Pulse Oximetry 99 09/15/18 09:59 09/15/18 10:33 Temperature Pulse Rate 86 Respiratory Rate Blood Pressure Pulse Oximetry 99 Intake & Output 09/14/18 09/15/18 09/15/18 18:59 06:59 18:59 Intake Total 1720 / 1720 480 / 480 Output Total 800 / 800 500 / 500 Balance 920 / 920 -20 / -20 Weight 85 kg Intake: IV 1000 / 1000 0 / 0 NS Inj 1,000 ML @ 75 mls/hr IV. 1000 / 1000 0 / 0 CONT .[id number] [facility] Rx#:[id number] Oral 720 / 720 480 / 480 Output: Urine 800 / 800 500 / 500 Other: Date of Last Bowel Movement 09/14/18 09/14/18 # Bowel Movements 1 0 Narrative: GENERAL: NAD SKIN: Warm and dry. HEAD: Atraumatic. Normocephalic. EYES: Pupils equal and round. No scleral icterus. No injection or drainage. ENT: No nasal bleeding or discharge. Mucous membranes pink and moist. NECK: Trachea midline. No JVD. CARDIOVASCULAR: Regular rate and rhythm. RESPIRATORY: No accessory muscle use. Clear to auscultation. Breath sounds equal bilaterally. GASTROINTESTINAL: Abdomen soft, non-tender, nondistended. Hepatic and splenic margins not palpable. MUSCULOSKELETAL: Extremities without clubbing, cyanosis, or edema. No obvious deformities. NEUROLOGICAL: Awake and alert. No obvious cranial nerve deficits. Motor grossly within normal limits. Five out of 5 muscle strength in the arms and legs. Normal speech. PSYCHIATRIC: Appropriate mood and affect; insight and judgment normal. Results Procedures completed during hospitalization: Left heart catheterization with stents placement Labs on day of discharge: Labs from last 24 hours 09/15/18 09/15/18 05:26 05:26 WBC 6.8 RBC 3.74 L Hgb 12.4 L Hct 36.7 L MCV 98.1 MCH 33.3 MCHC 33.9 RDW 13.6 Plt Count 156 MPV 8.4 Neut % (Auto) 70.7 H Lymph % (Auto) 13.2 [place] % (Auto) 14.0 H Eos % (Auto) 1.9 Baso % (Auto) 0.2 Neut # (Auto) 4.8 Lymph # (Auto) 0.9 L [place] # (Auto) 1.0 H Eos # (Auto) 0.1 Baso # (Auto) 0.0 WBC Differential . Differential Comment Auto diff final Sodium 142 Potassium 4.3 Chloride 110 H D Carbon Dioxide 23.9 Anion Gap 8 BUN 18 Creatinine 1.41 H Estimated GFR 48 L Random Glucose 113 H Calcium 8.4 L Total Creatine Kinase 106 - Impressions ITS Impressions Chest X-Ray 09/12/18 00:27 CONCLUSION: Negative examination. Mild interstitial lung disease. Discharge Plan - Discharge Disposition Patient Disposition: Discharge Home - Discharge Condition Condition: Good - Discharge Order Discharge Orders: Discharge Order (Routine); Ordered 09/15/18 Ordered By: Magnus Foley Cardiology Clear for Discharge (Routine); Ordered 09/15/18 Ordered By: Honorio Drew - Physicians Team Primary Care Provider: UNKNOWN, Attending Provider: Magnus Foley Other Providers: Honorio Drew MD ; [employer]
== END 2018-09-15 11:25 | disposition home or self-care (01) ==
LOC: NEPC 00:21 → NEDA 00:33 → HCIS 02:23
PROVIDERS: ADMIT Hospitalist; ATTEND Hospitalist